=== PATIENT | female | born 1960 | race Caucasian/White ===

== ENCOUNTER 2022-01-18 04:39 | Emergency (ER) | payer OTHER, SELFPAY ==
[2022-01-18 04:48] VITALS: BMI 36.0
[2022-01-18 04:54] VITALS: BP 112/41; PULSE 93; RESP 16; TEMP 36.6; O2SAT 97
[2022-01-18 05:14] LABS: COVID-19 Test Negative (Negative)
[2022-01-18 05:54] VITALS: BP 123/50; PULSE 86; RESP 16; TEMP 36.7; O2SAT 96
--- NOTE | 2022-01-18 05:57 | PC.NURSE ---
Pt transferred from the pod to room 17 due to complex medical history and plan for medical clearance. Pt calm/cooperative, denies SI/HI. Psych consult placed.
--- NOTE | 2022-01-18 06:38 | ED.PSYCH ---
HPI - Psych General Chief Complaint: Psychiatric Symptoms Stated Complaint: crisis Time Seen by Provider: 01/18/22 06:38 Source: patient and old records reviewed Mode of arrival: EMS Limitations: no limitations History of Present Illness HPI Narrative: 61 yo female hx of bipolar on lithium, ESRD on HD [facility], c diff colitis has colostomy in place, HTN, HLD, here with c/o insomnia sent from [facility] she is alert and oriented x 3. She is asking for a sleeping aid at this time. No other complaints just wants to sleep. She has no SI/HI. She is hungry she does not appear manic. complaint: anxiety Onset (ago): day(s) (2) Duration: constant History of same: Yes Relieving factors: medication Exacerbating factors: none Context: significant life stressor Associated psychiatric symptoms: racing thoughts Associated symptoms: denies other symptoms Treatments prior to arrival: none Related Data Home Medications Medication Instructions Recorded Confirmed amiodarone 200 mg tablet 1 tab PO DAILY 01/18/22 01/18/22 aspirin 81 mg tablet,delayed 1 tab PO DAILY 01/18/22 01/18/22 release calcitriol 0.25 mcg capsule 0.25 mcg PO QTUTHSA 01/18/22 01/18/22 docusate sodium 100 mg capsule 2 cap PO BID 01/18/22 01/18/22 (DOK) famotidine 20 mg tablet 1 tab PO DAILY 01/18/22 01/18/22 lamotrigine 25 mg tablet 2 tab PO DAILY 01/18/22 01/18/22 lithium carbonate 600 mg capsule 1 cap PO QTUTHSA 01/18/22 01/18/22 metoprolol tartrate 25 mg tablet 12.5 mg PO BID 01/18/22 01/18/22 midodrine 5 mg tablet 1 tab PO TID 01/18/22 01/18/22 multivitamin with folic acid 400 1 tab PO DAILY 01/18/22 01/18/22 mcg tablet (Tab-A-Leela) olanzapine 15 mg tablet 1 tab PO BEDTIME 01/18/22 01/18/22 polyethylene glycol 3350 17 17 g PO DAILY 01/18/22 01/18/22 gram/dose oral powder sertraline 100 mg tablet 1 tab PO DAILY 01/18/22 01/18/22 sevelamer HCl 800 mg tablet 3 tab PO TID 01/18/22 01/18/22 thiamine HCl (vitamin B1) 100 mg 1 tab PO DAILY 01/18/22 01/18/22 tablet Previous Rx's Medication Instructions Recorded lorazepam 0.5 mg tablet (Ativan) 0.5 mg PO BID PRN anxiety #14 tabs 01/18/22 Allergies Allergy/AdvReac Type Severity Reaction Status Date / Time furosemide [From Lasix] Allergy Unknown UNKNOWN Unverified 03/02/20 16:01 haloperidol [From Haldol] Allergy Unknown UNKNOWN Unverified 03/02/20 16:01 lithium [Hildebran] AdvReac Severe acute Unverified 03/02/20 16:01 renal failure From Haldol Allergy Unknown UNKNOWN Uncoded 03/02/20 16:01 Review of Systems Review of Systems: Constitutional : No Fever, No Chills ENT/Mouth : No Ear Pain, No Nasal Congestion, No sore throat Eyes: No Eye Pain, No Swelling, No Redness Cardiovascular : No Chest Pain, No SOB Respiratory : No Cough, No Sputum, No Dyspnea Gastrointestinal : No Nausea, No Vomiting, No Diarrhea, No Hematochezia, No Melena Genitourinary : No Dysuria, No Urinary Frequency, No Hematuria Musculoskeletal : No Myalgias Skin : No Skin Lesions, No rash Neuro : No Weakness, No Numbness, No Paresthesias, No Dizziness, No Headache Psych : positive Anxiety, no Depression, no SI/HI, pos insomnia Heme/Lymph: No Lymphadenopathy Endocrine : No Polyuria, No Polydipsia All other systems reviewed and are negative [facility] Past Medical History Attestation statement: The following information was validated with the patient. Medical History Bipolar 1 disorder C. difficile colitis ESRD (end stage renal disease) GERD (gastroesophageal reflux disease) HTN (hypertension) Hyperlipidemia Pneumonia Social History Social History Alcohol intake: former Patient Tobacco Use Status: Never used Tobacco Use of substances other than those prescribed or required for medical reasons: No Advance Directives: No Advance Directives Information Provided: Yes Physical Exam Vital Signs: Vital Signs: Last Vital Signs Temp 98.1 F 01/18/22 05:54 Pulse 64 01/18/22 07:19 Resp 16 01/18/22 05:54 BP 115/74 01/18/22 07:19 Pulse Ox 98 01/18/22 07:19 O2 Del Method 01/18/22 07:19 BMI result Body Mass Index 36.0 Appearance: Alert. Oriented X3. No acute distress. Eyes: Pupils equal, round and reactive to light. ENT: Pharynx normal. Neck: Normal inspection. Neck supple. CVS: Normal heart rate and rhythm. Pulses normal. Respiratory: No respiratory distress. Breath sounds normal. Abdomen: Soft and nontender. colostomy present Skin: Skin warm and dry. Normal skin color. Normal skin turgor. Extremities: No lower extremity edema. No calf ttp Neuro: Oriented X 3. No motor deficit. No sensory deficit. 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 Dispo per lab results and CARE team input. Lab Data Result diagrams: 01/18/22 07:22 01/18/22 07:22 Labs: Lab Results 01/18/22 01/18/22 01/18/22 Range/Units 04:56 07:22 07:22 WBC 7.5 (4.8-10.8) X10*3/uL RBC 3.21 L (4.20-5.50) X10*6/uL Hgb 10.4 L (12.0-16.0) g/dl Hct 31.2 L (37.0-47.0) % MCV 97.2 (80.0-98.0) fL MCH 32.4 (27.0-33.0) pg MCHC 33.3 (31.0-35.0) g/dl RDW 13.7 (11.0-16.0) % Plt Count 173 (160-400) X10*3/uL MPV 9.2 L (9.4-12.3) fL Absolute Nucleated RBC 0.000 (0.0-0.012) X10*3/uL Nucleated RBC % (auto) 0.0 (0.0-0.2) /100WBC Sodium 140 (135-145) mmol/L Potassium 4.6 (3.3-5.1) mmol/L Chloride 98 (96-108) mmol/L Carbon Dioxide 25 (22-29) mmol/L Anion Gap 22 H (12-20) BUN 32 H (9-16) mg/dL Creatinine 6.35 H* (0.5-1.4) mg/dL Estim Creat Clear Calc 10.5 Estimated GFR 7 Random Glucose 89 (60-115) mg/dL Calcium 10.5 H (8.4-10.2) mg/dL Total Bilirubin 0.6 (0.0-1.0) mg/dL AST 17 (5-31) U/L ALT 17 (0-31) U/L Alkaline Phosphatase 144 H (39-117) U/L Total Protein 7.2 (6.5-8.0) g/dL Albumin 4.6 (3.5-5.0) g/dL [place]an (0.60-1.20) mmol/L COVID-19 ([place]) Negative (Negative) COVID-19 Clin Com See Note 01/18/22 Range/Units 07:22 WBC (4.8-10.8) X10*3/uL RBC (4.20-5.50) X10*6/uL Hgb (12.0-16.0) g/dl Hct (37.0-47.0) % MCV (80.0-98.0) fL MCH (27.0-33.0) pg MCHC (31.0-35.0) g/dl RDW (11.0-16.0) % Plt Count (160-400) X10*3/uL MPV (9.4-12.3) fL Absolute Nucleated RBC (0.0-0.012) X10*3/uL Nucleated RBC % (auto) (0.0-0.2) /100WBC Sodium (135-145) mmol/L Potassium (3.3-5.1) mmol/L Chloride (96-108) mmol/L Carbon Dioxide (22-29) mmol/L Anion Gap (12-20) BUN (9-16) mg/dL Creatinine (0.5-1.4) mg/dL Estim Creat Clear Calc Estimated GFR Random Glucose (60-115) mg/dL Calcium (8.4-10.2) mg/dL Total Bilirubin (0.0-1.0) mg/dL AST (5-31) U/L ALT (0-31) U/L Alkaline Phosphatase (39-117) U/L Total Protein (6.5-8.0) g/dL Albumin (3.5-5.0) g/dL [place] 0.65 (0.60-1.20) mmol/L COVID-19 ([place]) (Negative) COVID-19 Clin Com Discharge Plan Discharge Clinical Impression: Insomnia Qualifiers: Insomnia type: unspecified Qualified Code(s): G47.00 - Insomnia, unspecified Patient Disposition: Home, Self-Care Instructions: Insomnia (ED) Additional Instructions: return to ED for any worsening symptoms or concerns would start on low dose PRN ativan for anxiety Prescriptions: New lorazepam [Ativan] 0.5 mg tablet 0.5 mg PO BID PRN (Reason: anxiety) Qty: 14 0RF No Action amiodarone 200 mg tablet 1 tab PO DAILY sertraline 100 mg tablet 1 tab PO DAILY olanzapine 15 mg tablet 1 tab PO BEDTIME midodrine 5 mg tablet 1 tab PO TID metoprolol tartrate 25 mg tablet 12.5 mg PO BID lamotrigine 25 mg tablet 2 tab PO DAILY aspirin 81 mg tablet,delayed release (DR/EC) 1 tab PO DAILY docusate sodium [DOK] 100 mg capsule 2 cap PO BID polyethylene glycol 3350 17 gram/dose powder 17 g PO DAILY thiamine HCl (vitamin B1) 100 mg tablet 1 tab PO DAILY lithium carbonate 600 mg capsule 1 cap PO QTUTHSA Label Comments: Every Friday, , and Friday after dialysis multivitamin with folic acid [Tab-A-Leela] 400 mcg tablet 1 tab PO DAILY sevelamer HCl 800 mg tablet 3 tab PO TID Label Comments: with meals famotidine 20 mg tablet 1 tab PO DAILY calcitriol 0.25 mcg Capsule 0.25 mcg PO QTUTHSA Rx Instructions: administer after dialysis on dialysis days
--- NOTE | 2022-01-18 06:47 | PC.NURSE ---
Pt refusing labs at this time
[2022-01-18] MEDS: LORazepam 1 MG TABLET PO (07:14)
[2022-01-18 07:19] VITALS: BP 115/74; PULSE 64; O2SAT 98
[2022-01-18 07:30] LABS: Hematocrit 31.2 % (37.0-47.0); Hemoglobin 10.4 g/dl (12.0-16.0); Mean Corpuscular HGB Conc 33.3 g/dl (31.0-35.0); Mean Corpuscular Hemoglobin 32.4 pg (27.0-33.0); Mean Corpuscular Volume 97.2 fL (80.0-98.0); Mean Platelet Volume 9.2 fL (9.4-12.3); Platelet Count 173 X10*3/uL (160-400); Red Blood Count 3.21 X10*6/uL (4.20-5.50); Red Cell Distribution Width 13.7 % (11.0-16.0); White Blood Count 7.5 X10*3/uL (4.8-10.8)
[2022-01-18 07:37] LABS: Lithium 0.65 mmol/L (0.60-1.20)
[2022-01-18 07:50] LABS: Alanine Aminotransferase 17 U/L (0-31); Albumin Level 4.6 g/dL (3.5-5.0); Alkaline Phosphatase 144 U/L (39-117); Anion Gap 22 (12-20); Aspartate Amino Transferase 17 U/L (5-31); Bilirubin Total 0.6 mg/dL (0.0-1.0); Blood Urea Nitrogen 32 mg/dL (9-16); Calcium 10.5 mg/dL (8.4-10.2); Carbon Dioxide 25 mmol/L (22-29); Chloride 98 mmol/L (96-108); Creatinine Clr Calc Pharmacy 10.5; Estimated Glomerular Filt Rate 7; Glucose Random 89 mg/dL (60-115); Potassium 4.6 mmol/L (3.3-5.1); Sodium 140 mmol/L (135-145); Total Protein 7.2 g/dL (6.5-8.0)
[2022-01-18 11:22] VITALS: BP 124/59; PULSE 87; RESP 17; TEMP 36.7; O2SAT 95
--- NOTE | 2022-01-18 12:05 | PC.NURSE ---
Spoke with [facility] regarding sending patient back home via [facility] transport van. According to staff pt at times is manic and makes sexual accusations periodically. Because of this, the staff did not recommend transport home back via the [facility] van. Primary RN notified and EMS transportation specialist was contacted.
== END 2022-01-18 13:47 | disposition home or self-care (01) ==
PROVIDERS: Emergency Provider Emergency Medicine
DX: G47.00 Insomnia, unspecified (principal); Z20.822 Contact with and (suspected) exposure to COVID-19; Z79.899 Other long term (current) drug therapy
CPT/HCPCS: 36415; 80053; 80178; 85027; 87635; 99284

== ENCOUNTER 2022-11-10 14:45 | Inpatient (IN) | payer OTHER, SELFPAY ==
--- NOTE | ~2022-11-10 | CT_ITS ---
EXAMINATION: CT CHEST WITHOUT CONTRAST CLINICAL INFORMATION: Hypoxia COMPARISON: Chest radiograph earlier today TECHNIQUE: Multidetector volumetric CT imaging of the chest was done. Axial MIP volume rendering provided. Sagittal and coronal reformatted images were obtained. The exam is suboptimal secondary to marked motion artifact This CT examination was performed using dose optimization techniques as appropriate, variously including the following: *Automated exposure control *Adjustment of mA and/or kV according to patient size (this includes techniques or standardized protocols for targeted exams where dose is matched to indication/reason for exam; i.e. extremities or head) *Use of iterative reconstruction technique DLP: 357 mGy-cm FINDINGS: INGREDIENT SPECIALIST: Cardiomegaly and degenerative changes in the spine. LUNGS: Bibasilar atelectasis is present improved since 2010. A few tiny micronodules are seen with a 2 mm nodule in the left lower lobe adjacent to the fissure (5:193) and a right middle lobe 3 mm nodule (5:194).. No suspicious lung masses are seen. MEDIASTINUM: Thyroid is lobular but unremarkable. There is mild cardiac enlargement. No mediastinal or hilar lymphadenopathy is seen. No pericardial effusion. CORONARY ARTERY CALCIFICATION: Present PLEURA:Trace bilateral pleural effusions may be present. AXILLA: No lymphadenopathy. UPPER ABDOMEN: There is cholelithiasis without evidence of cholecystitis. There are bilateral Bosniak class I and Bosniak class II renal cysts present. The kidneys are atrophic. Calcifications present secondary to scarring and nephrolithiasis. No hydronephrosis seen. OSSEOUS STRUCTURES: Degenerative changes are noted throughout the spine CT/CT chest wo IV con IMPRESSION: 1. Cardiomegaly with trace bilateral pleural effusions. 2. A few tiny micronodules are seen. 3. Cholelithiasis without cholecystitis. 4. Bilateral renal cysts, Bosniak class I and II which need no additional follow-up. 5. Bilateral nephrolithiasis and renal scarring. No hydronephrosis. Fleischner guidelines were followed.
--- NOTE | ~2022-11-10 | XR_ITS ---
EXAMINATION: XR CHEST CLINICAL INFORMATION: Shortness of breath COMPARISON: Chest radiograph 10/21/2009, CT chest 10/16/2009. TECHNIQUE: Frontal view of the chest was obtained. FINDINGS: Low lung lines are present with the fifth anterior rib segments terminating projection with the lung bases. Normal appearance of the cardiomediastinal structures. Mild left base scattered airspace type opacities are noted. No pneumothoraces or definitive pleural effusions visualized. XR/XR chest 1V IMPRESSION: *Low lung volumes. *Mild left base airspace opacity which may represent mild atelectasis in the setting of low lung volumes. Mild focal consolidation could have a similar appearance.
--- NOTE | ~2022-11-10 | CT_ITS ---
EXAMINATION: CT HEAD WITHOUT CONTRAST CLINICAL INFORMATION: Change in mental status. Change in mental status. COMPARISON: CT head from 10/04/2009. TECHNIQUE: Contiguous axial imaging was performed from the skull base to vertex without intravenous administration of contrast. This CT examination was performed using dose optimization techniques as appropriate, variously including the following: *Automated exposure control. *Adjustment of mA and/or kV according to patient size (this includes techniques or standardized protocols for targeted exams where dose is matched to indication/reason for exam; i.e. extremities or head). *Use of iterative reconstruction technique. DLP: 835 mGy-cm FINDINGS: There is no evidence of acute intracranial hemorrhage or edematous territorial infarction. Cor[place]-white matter differentiation is preserved. There is no abnormal attenuation within the brain parenchyma. The ventricles are normal in morphology and size. No evidence for obstructive hydrocephalus. No abnormal mass effect or midline shift. No extra-axial fluid collections. Calcific atherosclerotic disease of the intracranial internal carotid arteries. No hyperdense vessel sign. No acute soft tissue or osseous abnormalities. Mild mucosal thickening of the paranasal sinuses. The mastoid air cells and middle ear cavities are clear. Mild to moderate degenerative arthropathy of the temporomandibular joints. Multifocal odontogenic enamel erosions. CT/CT head/brain wo IV con IMPRESSION: 1. No evidence of acute intracranial hemorrhage or edematous territorial infarction. 2. Mild underlying microangiopathy and generalized cerebral volume loss.
[2022-11-10 14:55] VITALS: BP 113/41; BP 131/76; PULSE 83; PULSE 90; RESP 20; TEMP 36.8; O2SAT 87; O2SAT 91; BMI 33.8
--- NOTE | 2022-11-10 15:34 | ECG_ITS ---
Test Reason : SOB Blood Pressure : / mmHG Vent. Rate : 079 BPM Atrial Rate : 079 BPM P-R Int : 214 ms QRS Dur : 130 ms QT Int : 416 ms P-R-T Axes : 041 -26 041 degrees QTc Int : 477 ms Sinus rhythm with 1st degree A-V block Left ventricular hypertrophy with QRS widening ( R in aVL , [place] product ) Abnormal ECG When compared with ECG of 18-OCT-2009 10:42, Premature ventricular complexes are no longer Present FL interval has increased QRS duration has increased QT has lengthened Referred By: David Traore Electronically Signed By:FRANCOISE CONDON MD
[2022-11-10 15:35] VITALS: O2SAT 83
--- NOTE | 2022-11-10 16:15 | ED.GENADULT ---
HPI - General Adult General Chief complaint: Dyspnea Stated complaint: Low O2 sat at facility per EMS Time Seen by Provider: 11/10/22 16:09 Source: patient and EMS Mode of arrival: EMS Limitations: no limitations History of Present Illness HPI narrative: 62-year-old female history revealed on lithium, ESRD on HD had dialysis yesterday, history of C diff colitis as a colostomy please, HTN, HLD, patient of at the detention today when out with her family who noticed that patient suddenly became lethargic, patient is known to COPD/asthma declined any shortness of breath no headache, no blurry vision, photophobia, no neck stiffness no CP, no SOB, no doctor, no nausea, vomiting, no diarrhea. Patient is not using supplemental oxygen home. Related Data Home Medications Medication Instructions Recorded Confirmed amiodarone 200 mg tablet 1 tab PO DAILY 01/18/22 01/18/22 aspirin 81 mg tablet,delayed 1 tab PO DAILY 01/18/22 01/18/22 release calcitriol 0.25 mcg capsule 0.25 mcg PO QTUTHSA 01/18/22 01/18/22 docusate sodium 100 mg capsule 2 cap PO BID 01/18/22 01/18/22 (DOK) famotidine 20 mg tablet 1 tab PO DAILY 01/18/22 01/18/22 lamotrigine 25 mg tablet 2 tab PO DAILY 01/18/22 01/18/22 lithium carbonate 600 mg capsule 1 cap PO QTUTHSA 01/18/22 01/18/22 metoprolol tartrate 25 mg tablet 12.5 mg PO BID 01/18/22 01/18/22 midodrine 5 mg tablet 1 tab PO TID 01/18/22 01/18/22 multivitamin with folic acid 400 1 tab PO DAILY 01/18/22 01/18/22 mcg tablet (Tab-A-Leela) olanzapine 15 mg tablet 1 tab PO BEDTIME 01/18/22 01/18/22 polyethylene glycol 3350 17 17 g PO DAILY 01/18/22 01/18/22 gram/dose oral powder sertraline 100 mg tablet 1 tab PO DAILY 01/18/22 01/18/22 sevelamer HCl 800 mg tablet 3 tab PO TID 01/18/22 01/18/22 thiamine HCl (vitamin B1) 100 mg 1 tab PO DAILY 01/18/22 01/18/22 tablet Previous Rx's Medication Instructions Recorded lorazepam 0.5 mg tablet (Ativan) 0.5 mg PO BID PRN anxiety #14 tabs 01/18/22 Allergies Allergy/AdvReac Type Severity Reaction Status Date / Time furosemide [From Lasix] Allergy Unknown UNKNOWN Unverified 03/02/20 16:01 haloperidol [From Haldol] Allergy Unknown UNKNOWN Unverified 03/02/20 16:01 lithium [[place]] AdvReac Severe acute Unverified 03/02/20 16:01 renal failure From Haldol Allergy Unknown UNKNOWN Uncoded 03/02/20 16:01 Review of Systems Review of Systems: All other systems are reviewed and are negative Constitutional: Reports as per HPI and Reports no additional constitutional complaints Eyes: Reports as per HPI and Reports no additional eye complaints Reports system reviewed and no additional complaints, except as documented Cardiovascular: Reports as per HPI and Reports no additional cardiovascular complaints Respiratory: Reports as per HPI and Reports no additional respiratory complaints Gastrointestinal: Reports as per HPI and Reports no additional gastrointestinal complaints Genitourinary: Reports no additional female genitourinary complaints Musculoskeletal: Reports no additional musculoskeletal complaints Skin/Breast: Reports system reviewed and no additional complaints, except as docu Psychiatric: Reports no additional psychiatric complaints Endocrine: Reports no additional endocrine complaints Hematologic/Lymphatic: Reports no additional hematologic/lymphatic complaints Allergic/Immunologic: Reports no additional allergic/immunologic complaints Reports system reviewed and no additional complaints, except as documented and Reports Abnormal speech present [facility] Past Medical History Medical History Bipolar 1 disorder C. difficile colitis ESRD (end stage renal disease) GERD (gastroesophageal reflux disease) HTN (hypertension) Hyperlipidemia Pneumonia Social History Social History Alcohol intake: former Patient Tobacco Use Status: Never used Tobacco Smoked in Last 30 Days: No Use of substances other than those prescribed or required for medical reasons: No Advance Directives: Yes Advance Directives on File: Yes Advance Directives Date on File: 01/21/22 Physical Exam ED Vital Signs: Vital Signs - 24 hr 11/10/22 14:55 11/10/22 15:35 11/10/22 16:51 Temperature 98.3 F 97.2 F Pulse Rate 83 79 Respiratory Rate 20 19 Blood Pressure 113/41 L 98/58 L Pulse Oximetry 87 L 83 L 95 Oxygen Delivery Method Nasal Cannula Nasal Cannula Oxygen Flow Rate 2 2 11/10/22 18:16 Temperature Pulse Rate 79 Respiratory Rate 14 Blood Pressure 109/51 L Pulse Oximetry 95 Oxygen Delivery Method Nasal Cannula Oxygen Flow Rate 2 BMI result Body Mass Index 33.8 Vital signs have been reviewed as appeared to be correct. Blood pressure normal. Heart rate normal. Respiration rate normal. Temperature normal. Oxygen saturation normal. Appearance: Alert. Oriented X3. No acute distress. Head: Normal external exam. Normocephalic. Atraumatic. No Treviño signs noted. No raccoon eyes noted Eyes: PERRLA. EOMI. Conjunctiva and sclera normal. Eyelids normal. ENT: TM's Normal. Pharynx normal. Uvula midline. Moist mucous membranes. No trismus noted. No drooling noted. No muffled voice noted. Neck: Normal inspection. Neck supple. FROM. No adenopathy. Thyroid Normal. No meningeal signs. No neck mass noted. CVS: Normal heart rate and rhythm. Heart sound normal. No murmurs noted. Pulses normal throughout. Respiratory: No respiratory distress. Painless inspiration. Breath sounds normal. No wheezes/rales/rhonchi noted. Chest nontender. No accessory muscle usage noted or decreased air movement noted. Abdomen: Soft and nontender. Bowel sounds normal in all 4 quadrants. No distention noted. No organomegaly noted. No visible injury noted. Back: No CVA tenderness. Full range of motion noted. Skin: Skin warm and dry. Normal skin color. Normal skin turgor. No rashes/lesions/lacerations noted. Extremities: No lower extremity edema. Extremities exhibit normal range of motion. Extremities nontender. Neuro: Oriented X 3. Cranial nerve exam: II-XII are grossly intact No motor deficit. No sensory deficit. Reflexes normal. Course Course Course Narrative: A 62-year-old female came in for evaluation of lethargy and hypoxia, patient had recent similar presentation to [facility] this week, patient is at risk for pulmonary embolism because chronic renal failure unable to obtain CT angio with IV contrast, patient however received 1 dose of Lovenox and will get admitted for V/Q scan as an inpatient. Patient will be monitored for lethargic and hypoxia. Hypoxia is improved with 2 L of nasal cannula. Medications Administered Discontinued Medications Generic Name Dose Route Start Last Admin Trade Name [place] PRN Reason Stop Dose Admin Dextrose 25 gm 11/10/22 17:30 11/10/22 17:26 Dextrose 50 % 25 Gm/50 Ml Syringe IVPUSH 11/10/22 17:31 25 gm ONCE ONE Administration Enoxaparin Sodium 100 mg 11/10/22 20:32 11/10/22 20:40 Enoxaparin Sodium 100 Mg/Ml Syringe 1 mg/kg (100 mg) 11/10/22 20:33 100 mg SUBCUT Administration ONCE ONE Medical Decision Making Differential Diagnosis Differential Diagnoses: The differential diagnosis associated with the presentation includes (Pulmonary embolism, pneumonia, COPD exacerbation, electrolyte abnormalities, severe anemia, substance abuse.) Admission/Observation Consideration of admission/observation: Escalation of care including admission/observation considered Consult Healthcare Provider Management of the patient was discussed with: Hospitalist (Dr. antonio) Lab Data MDM Lab Attestation statement: I reviewed the patient's lab results. 11/10/22 20:39 11/10/22 16:21 Labs: Lab Results 11/10/22 11/10/22 11/10/22 Range/Units 15:49 16:20 16:21 WBC 10.7 (4.8-10.8) X10*3/uL RBC 2.51 L D (4.20-5.50) X10*6/uL Hgb 8.1 L D (12.0-16.0) g/dl Hct 27.2 L (37.0-47.0) % MCV 108.4 H (80.0-98.0) fL MCH 32.3 (27.0-33.0) pg MCHC 29.8 L (31.0-35.0) g/dl RDW 16.0 (11.0-16.0) % Plt Count 262 D (160-400) X10*3/uL MPV 8.6 L (9.4-12.3) fL Immature Gran % (Auto) 1.1 H (0.0-0.4) % Neut % (Auto) 77.3 H (45-73) % Lymph % (Auto) 10.3 L (20-40) % [place] % (Auto) 8.7 (2-11) % Eos % (Auto) 2.1 (0-4) % Baso % (Auto) 0.5 (0-2) % Lymph # (Auto) 1.1 L (1.2-4.9) X10*3/uL [place] # (Auto) 0.9 (0.1-1.2) X10*3/uL Eos # (Auto) 0.2 (0.0-0.4) X10*3/uL Baso # (Auto) 0.1 (0.0-0.2) X10*3/uL Abs Immat Gran (auto) 0.12 H (0.00-0.03) X10*3/uL Absolute Neuts (auto) 8.3 (2.0-8.3) x10*3/uL Absolute Nucleated RBC 0.000 (0.0-0.012) X10*3/uL Nucleated RBC % (auto) 0.0 (0.0-0.2) /100WBC PT (10.0-13.1) SEC INR (0.9-1.1) APTT (26.0-36.4) SEC D-Dimer High Sensitivty NG/ML VBG pH (7.32-7.43) VBG pCO2 mmHg VBG pO2 mmHg VBG HCO3 (22-26) mmol/L VBG O2 Saturation % VBG Base Excess mmol/L Sodium (135-145) mmol/L Potassium (3.3-5.1) mmol/L Chloride (96-108) mmol/L Carbon Dioxide (22-29) mmol/L Anion Gap (12-20) BUN (9-16) mg/dL Creatinine (0.5-1.4) mg/dL Estim Creat Clear Calc Estimated GFR POC Glucose (60-115) mg/dL Random Glucose (60-115) mg/dL Calcium (8.4-10.2) mg/dL Total Bilirubin (0.0-1.0) mg/dL AST (5-31) U/L ALT (0-31) U/L Alkaline Phosphatase (39-117) U/L Ammonia (13-55) umol/L Troponin I High Sens (<3.5-17.0) ng/L B-Natriuretic Peptide (<100) pg/mL Total Protein (6.5-8.0) g/dL Albumin (3.5-5.0) g/dL [place] 0.61 (0.60-1.20) mmol/L COVID-19 ([place]) Negative (Negative) COVID-19 Clin Com See Note 11/10/22 11/10/22 11/10/22 Range/Units 16:21 16:21 16:21 WBC (4.8-10.8) X10*3/uL RBC (4.20-5.50) X10*6/uL Hgb (12.0-16.0) g/dl Hct (37.0-47.0) % MCV (80.0-98.0) fL MCH (27.0-33.0) pg MCHC (31.0-35.0) g/dl RDW (11.0-16.0) % Plt Count (160-400) X10*3/uL MPV (9.4-12.3) fL Immature Gran % (Auto) (0.0-0.4) % Neut % (Auto) (45-73) % Lymph % (Auto) (20-40) % Mcdowell % (Auto) (2-11) % Eos % (Auto) (0-4) % Baso % (Auto) (0-2) % Lymph # (Auto) (1.2-4.9) X10*3/uL [place] # (Auto) (0.1-1.2) X10*3/uL Eos # (Auto) (0.0-0.4) X10*3/uL Baso # (Auto) (0.0-0.2) X10*3/uL Abs Immat Gran (auto) (0.00-0.03) X10*3/uL Absolute Neuts (auto) (2.0-8.3) x10*3/uL Absolute Nucleated RBC (0.0-0.012) X10*3/uL Nucleated RBC % (auto) (0.0-0.2) /100WBC PT 10.1 (10.0-13.1) SEC INR 0.9 (0.9-1.1) APTT (26.0-36.4) SEC D-Dimer High Sensitivty 238 NG/ML VBG pH (7.32-7.43) VBG pCO2 mmHg VBG pO2 mmHg VBG HCO3 (22-26) mmol/L VBG O2 Saturation % VBG Base Excess mmol/L Sodium 145 (135-145) mmol/L Potassium 4.0 (3.3-5.1) mmol/L Chloride 99 (96-108) mmol/L Carbon Dioxide 31 H (22-29) mmol/L Anion Gap 19 (12-20) BUN 29 H (9-16) mg/dL Creatinine 6.37 H* (0.5-1.4) mg/dL Estim Creat Clear Calc 11.5 Estimated GFR 7 POC Glucose (60-115) mg/dL Random Glucose 49 L* (60-115) mg/dL Calcium 10.2 (8.4-10.2) mg/dL Total Bilirubin 0.5 (0.0-1.0) mg/dL AST 14 (5-31) U/L ALT 13 (0-31) U/L Alkaline Phosphatase 119 H (39-117) U/L Ammonia (13-55) umol/L Troponin I High Sens 10.5 (<3.5-17.0) ng/L B-Natriuretic Peptide (<100) pg/mL Total Protein 6.7 (6.5-8.0) g/dL Albumin 4.1 (3.5-5.0) g/dL [place] (0.60-1.20) mmol/L COVID-19 ([place]) (Negative) COVID-19 Clin Com 11/10/22 11/10/22 11/10/22 Range/Units 16:21 16:21 16:21 WBC (4.8-10.8) X10*3/uL RBC (4.20-5.50) X10*6/uL Hgb (12.0-16.0) g/dl Hct (37.0-47.0) % MCV (80.0-98.0) fL MCH (27.0-33.0) pg MCHC (31.0-35.0) g/dl RDW (11.0-16.0) % Plt Count (160-400) X10*3/uL MPV (9.4-12.3) fL Immature Gran % (Auto) (0.0-0.4) % Neut % (Auto) (45-73) % Lymph % (Auto) (20-40) % [place]cd[place] % (Auto) (2-11) % Eos % (Auto) (0-4) % Baso % (Auto) (0-2) % Lymph # (Auto) (1.2-4.9) X10*3/uL [place] # (Auto) (0.1-1.2) X10*3/uL Eos # (Auto) (0.0-0.4) X10*3/uL Baso # (Auto) (0.0-0.2) X10*3/uL Abs Immat Gran (auto) (0.00-0.03) X10*3/uL Absolute Neuts (auto) (2.0-8.3) x10*3/uL Absolute Nucleated RBC (0.0-0.012) X10*3/uL Nucleated RBC % (auto) (0.0-0.2) /100WBC PT (10.0-13.1) SEC INR (0.9-1.1) APTT (26.0-36.4) SEC D-Dimer High Sensitivty Cancelled NG/ML VBG pH (7.32-7.43) VBG pCO2 mmHg VBG pO2 mmHg VBG HCO3 (22-26) mmol/L VBG O2 Saturation % VBG Base Excess mmol/L Sodium (135-145) mmol/L Potassium (3.3-5.1) mmol/L Chloride (96-108) mmol/L Carbon Dioxide (22-29) mmol/L Anion Gap (12-20) BUN (9-16) mg/dL Creatinine (0.5-1.4) mg/dL Estim Creat Clear Calc Estimated GFR POC Glucose (60-115) mg/dL Random Glucose (60-115) mg/dL Calcium (8.4-10.2) mg/dL Total Bilirubin (0.0-1.0) mg/dL AST (5-31) U/L ALT (0-31) U/L Alkaline Phosphatase (39-117) U/L Ammonia 20 (13-55) umol/L Troponin I High Sens (<3.5-17.0) ng/L B-Natriuretic Peptide 45 (<100) pg/mL Total Protein (6.5-8.0) g/dL Albumin (3.5-5.0) g/dL [place] (0.60-1.20) mmol/L COVID-19 ([place]) (Negative) COVID-19 Clin Com 11/10/22 11/10/22 11/10/22 Range/Units 16:42 17:55 20:39 WBC 10.0 (4.8-10.8) X10*3/uL RBC 2.28 L (4.20-5.50) X10*6/uL Hgb 7.3 L (12.0-16.0) g/dl Hct 24.3 L (37.0-47.0) % MCV 106.6 H (80.0-98.0) fL MCH 32.0 (27.0-33.0) pg MCHC 30.0 L (31.0-35.0) g/dl RDW 16.2 H (11.0-16.0) % Plt Count 231 (160-400) X10*3/uL MPV 8.6 L (9.4-12.3) fL Immature Gran % (Auto) (0.0-0.4) % Neut % (Auto) (45-73) % Lymph % (Auto) (20-40) % [place] % (Auto) (2-11) % Eos % (Auto) (0-4) % Baso % (Auto) (0-2) % Lymph # (Auto) (1.2-4.9) X10*3/uL [place] # (Auto) (0.1-1.2) X10*3/uL Eos # (Auto) (0.0-0.4) X10*3/uL Baso # (Auto) (0.0-0.2) X10*3/uL Abs Immat Gran (auto) (0.00-0.03) X10*3/uL Absolute Neuts (auto) (2.0-8.3) x10*3/uL Absolute Nucleated RBC 0.000 (0.0-0.012) X10*3/uL Nucleated RBC % (auto) 0.0 (0.0-0.2) /100WBC PT (10.0-13.1) SEC INR (0.9-1.1) APTT (26.0-36.4) SEC D-Dimer High Sensitivty NG/ML VBG pH 7.45 H (7.32-7.43) VBG pCO2 55 mmHg VBG pO2 38 mmHg VBG HCO3 38 H (22-26) mmol/L VBG O2 Saturation 57.0 % VBG Base Excess 13.2 mmol/L Sodium (135-145) mmol/L Potassium (3.3-5.1) mmol/L Chloride (96-108) mmol/L Carbon Dioxide (22-29) mmol/L Anion Gap (12-20) BUN (9-16) mg/dL Creatinine (0.5-1.4) mg/dL Estim Creat Clear Calc Estimated GFR POC Glucose 171 H (60-115) mg/dL Random Glucose (60-115) mg/dL Calcium (8.4-10.2) mg/dL Total Bilirubin (0.0-1.0) mg/dL AST (5-31) U/L ALT (0-31) U/L Alkaline Phosphatase (39-117) U/L Ammonia (13-55) umol/L Troponin I High Sens (<3.5-17.0) ng/L B-Natriuretic Peptide (<100) pg/mL Total Protein (6.5-8.0) g/dL Albumin (3.5-5.0) g/dL [place] (0.60-1.20) mmol/L COVID-19 ([place]) (Negative) COVID-19 Clin Com 11/10/22 Range/Units 20:39 WBC (4.8-10.8) X10*3/uL RBC (4.20-5.50) X10*6/uL Hgb (12.0-16.0) g/dl Hct (37.0-47.0) % MCV (80.0-98.0) fL MCH (27.0-33.0) pg MCHC (31.0-35.0) g/dl RDW (11.0-16.0) % Plt Count (160-400) X10*3/uL MPV (9.4-12.3) fL Immature Gran % (Auto) (0.0-0.4) % Neut % (Auto) (45-73) % Lymph % (Auto) (20-40) % [place] % (Auto) (2-11) % Eos % (Auto) (0-4) % Baso % (Auto) (0-2) % Lymph # (Auto) (1.2-4.9) X10*3/uL [place] # (Auto) (0.1-1.2) X10*3/uL Eos # (Auto) (0.0-0.4) X10*3/uL Baso # (Auto) (0.0-0.2) X10*3/uL Abs Immat Gran (auto) (0.00-0.03) X10*3/uL Absolute Neuts (auto) (2.0-8.3) x10*3/uL Absolute Nucleated RBC (0.0-0.012) X10*3/uL Nucleated RBC % (auto) (0.0-0.2) /100WBC PT 10.2 (10.0-13.1) SEC INR 0.9 (0.9-1.1) APTT 29.6 (26.0-36.4) SEC D-Dimer High Sensitivty NG/ML VBG pH (7.32-7.43) VBG pCO2 mmHg VBG pO2 mmHg VBG HCO3 (22-26) mmol/L VBG O2 Saturation % VBG Base Excess mmol/L Sodium (135-145) mmol/L Potassium (3.3-5.1) mmol/L Chloride (96-108) mmol/L Carbon Dioxide (22-29) mmol/L Anion Gap (12-20) BUN (9-16) mg/dL Creatinine (0.5-1.4) mg/dL Estim Creat Clear Calc Estimated GFR POC Glucose (60-115) mg/dL Random Glucose (60-115) mg/dL Calcium (8.4-10.2) mg/dL Total Bilirubin (0.0-1.0) mg/dL AST (5-31) U/L ALT (0-31) U/L Alkaline Phosphatase (39-117) U/L Ammonia (13-55) umol/L Troponin I High Sens (<3.5-17.0) ng/L B-Natriuretic Peptide (<100) pg/mL Total Protein (6.5-8.0) g/dL Albumin (3.5-5.0) g/dL [place] (0.60-1.20) mmol/L COVID-19 ([place]) (Negative) COVID-19 Clin Com Independent Interpretation I performed an independent interpretation of an: Plain X-Ray (Chest:? Left low lung opacity.) and CT Scan (Chest/head CT: No acute intracranial/intrathoracic pathology.) Radiology Impression Discussion of test interpretation with radiology: I have reviewed the radiologist's reading. Discharge Plan Discharge Clinical Impression: Lethargic, COPD with hypoxia Patient Disposition: Admitted As Inpatient
[2022-11-10 16:21] LABS: COVID-19 Test Negative (Negative); IDNOW Serial# 08D9AD1C
[2022-11-10 16:46] LABS: MANUAL DIFF FLAG NO
[2022-11-10 16:48] LABS: Basophils Absolute Auto 0.1 X10*3/uL (0.0-0.2); Basophils Percent Auto 0.5 % (0-2); Eosinophils Absolute Auto 0.2 X10*3/uL (0.0-0.4); Eosinophils Percent Auto 2.1 % (0-4); Hematocrit 27.2 % (37.0-47.0); Hemoglobin 8.1 g/dl (12.0-16.0); Imm Gran Abs Auto 0.12 X10*3/uL (0.00-0.03); Imm Gran Pct Auto 1.1 % (0.0-0.4); Lymphocytes Absolute Auto 1.1 X10*3/uL (1.2-4.9); Lymphocytes Percent Auto 10.3 % (20-40); Mean Corpuscular HGB Conc 29.8 g/dl (31.0-35.0); Mean Corpuscular Hemoglobin 32.3 pg (27.0-33.0); Mean Corpuscular Volume 108.4 fL (80.0-98.0); Mean Platelet Volume 8.6 fL (9.4-12.3); Monocytes Absolute Auto 0.9 X10*3/uL (0.1-1.2); Monocytes Percent Auto 8.7 % (2-11); Neutrophils Absolute Auto 8.3 x10*3/uL (2.0-8.3); Neutrophils Percent Auto 77.3 % (45-73); Platelet Count 262 X10*3/uL (160-400); Red Blood Count 2.51 X10*6/uL (4.20-5.50); White Blood Count 10.7 X10*3/uL (4.8-10.8)
[2022-11-10 16:49] LABS: Venous Blood Gas Refer to POC result
[2022-11-10 16:50] LABS: VBG Base Excess 13.2 mmol/L; VBG HCO3 38 mmol/L (22-26); VBG pCO2 55 mmHg; VBG pH 7.45 (7.32-7.43); VBG pO2 38 mmHg
[2022-11-10 16:51] VITALS: BP 98/58; PULSE 79; RESP 19; TEMP 36.2; O2SAT 95
[2022-11-10 16:54] LABS: INTERNATIONAL NORM RATIO 0.9 (0.9-1.1); Prothrombin Time 10.1 SEC (10.0-13.1)
[2022-11-10 16:56] LABS: Ammonia 20 umol/L (13-55); D Dimer High Sensitivity 238 NG/ML
[2022-11-10 16:57] LABS: Lithium 0.61 mmol/L (0.60-1.20)
[2022-11-10 17:09] LABS: B Type Natriuretic Peptide 45 pg/mL (<100)
[2022-11-10 17:11] LABS: Alanine Aminotransferase 13 U/L (0-31); Albumin Level 4.1 g/dL (3.5-5.0); Alkaline Phosphatase 119 U/L (39-117); Anion Gap 19 (12-20); Aspartate Amino Transferase 14 U/L (5-31); Bilirubin Total 0.5 mg/dL (0.0-1.0); Blood Urea Nitrogen 29 mg/dL (9-16); Calcium 10.2 mg/dL (8.4-10.2); Carbon Dioxide 31 mmol/L (22-29); Chloride 99 mmol/L (96-108); Creatinine Clr Calc Pharmacy 11.5; Estimated Glomerular Filt Rate 7; Glucose Random 49 mg/dL (60-115); Sodium 145 mmol/L (135-145); Total Protein 6.7 g/dL (6.5-8.0)
[2022-11-10 17:14] LABS: Troponin-I High Sensitivity 10.5 ng/L (<3.5-17.0)
[2022-11-10] MEDS: Dextrose 50 % 25 GM/50 ML SYRINGE IVPUSH (17:26)
[2022-11-10 18:00] LABS: Glucose, Whole Blood 171 mg/dL (60-115)
[2022-11-10 18:16] VITALS: BP 109/51; PULSE 79; RESP 14; O2SAT 95
--- NOTE | 2022-11-10 18:31 | MHC.EDTECH ---
pt tells t/w that she does not normally produce urine d/t dialysis. urine sample unable to be obtained. md collazo aware.
--- NOTE | 2022-11-10 19:39 | PC.NURSE ---
I assumed care of the pt at 1900. Pt is asleep in bed at this time. 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
[2022-11-10] MEDS: Enoxaparin Sodium 100 MG/ML SYRINGE SUBCUT (20:40)
[2022-11-10 20:43] LABS: Hematocrit 24.3 % (37.0-47.0); Hemoglobin 7.3 g/dl (12.0-16.0); Mean Corpuscular Volume 106.6 fL (80.0-98.0); Mean Platelet Volume 8.6 fL (9.4-12.3); Platelet Count 231 X10*3/uL (160-400); Red Blood Count 2.28 X10*6/uL (4.20-5.50); Red Cell Distribution Width 16.2 % (11.0-16.0)
[2022-11-10 20:49] LABS: INTERNATIONAL NORM RATIO 0.9 (0.9-1.1); Prothrombin Time 10.2 SEC (10.0-13.1)
[2022-11-10 20:51] LABS: Partial Thromboplastin Time 29.6 SEC (26.0-36.4)
--- NOTE | 2022-11-10 21:17 | PM.IMHP ---
History of Present Illness Date of Service: 11/10/22 Attending physician on admission: Jovanny Sin Chief Complaint: AMS, lethargy 62-year-old female with history of bipolar disordered, hypertension, hyperlipidemia, paroxysmal atrial fibrillation not on anticoagulation, colon cancer s/p resection with end-colostomy, COPD, Oliguric ESRD on dialysis presents to the ED for evaluation of altered mentation and lethargy noted by family shortly after eating lunch. The patient resides in a [place] [facility] and was noted to be days and exhausted appearing by [place] [facility] staff. She was recently hospitalized at [facility] for complications of CKD with lethargy and acute metabolic encephalopathy that did resolve following hemodialysis. Per the patient, she did undergo hemodialysis yesterday. Staff at [place] [facility] report oximetry of 70% rather than baseline 85-90%. She does not use home O2. In the ED, patient desaturates to 83% on room air and was placed on 2 L supplemental O2 via nasal cannula. Vitals otherwise stable. There is no leukocytosis. H/H 7.3/24.3% with MCV 106.6. Creatinine 6.37, BUN 29, electrolytes within normal limits except for CO2 of 31. Initial glucose 49, improved to 171 with 1 amp D50. VBG showed pH 7.45, pCO2 55, PO2 38, bicarb 38. [place] level therapeutic at 0.61. Negative for COVID-19. BNP 45, troponin 10.5. Ammonia level normal at 20. TSH pending. D-dimer 238. Head CT negative for any acute intracranial abnormality but does show underlying microangiopathy and generalized cerebral volume loss. CXR shows low lung volumes and mild left base airspace opacity which may represent mild atelectasis in the setting of low lung volumes. Chest CT shows cardiomegaly with trace bilateral pleural effusions with a few tiny micro nodules. Patient reports taking all of her medications as prescribed. Denies any illicit drug use or alcohol use. Does not smoke cigarettes. Out of concern for pulmonary embolism given hypoxia, she was given empiric dose of therapeutic Lovenox 100 mg in the ED. She has no concerns at this time. Review of Systems Review of Systems: General: No fevers, malaise, unintentional weight loss HEENT: No blurred vision, diplopia. No sore throat, nasal congestion, rhinorrhea, sinus pain, ear pain Cardiovascular: No chest pain, palpitations, or leg edema Respiratory: No shortness of breath, wheezing, cough GI: No abdominal pain, nausea, vomiting, diarrhea, constipation, melena, hematochezia : No dysuria, hematuria, increased urinary frequency, decreased urinary output MSK: No myalgia, back pain Neuro: No headaches, weakness, paresthesias. Skin: No rashes or lesions [facility] Medical History (Updated 11/10/22 @ 21:26 by CLINTON Gonzalez) Anemia of chronic disease Bipolar 1 disorder C. difficile colitis Colon cancer COPD (chronic obstructive pulmonary disease) ESRD (end stage renal disease) GERD (gastroesophageal reflux disease) HTN (hypertension) Hyperlipidemia Pneumonia Surgical History S/P colectomy Social History Alcohol intake: former Patient Tobacco Use Status: Never used Tobacco Smoked in Last 30 Days: No Use of substances other than those prescribed or required for medical reasons: No Advance Directives: Yes Advance Directives on File: Yes Advance Directives Date on File: 01/21/22 Meds Allergies Allergy/AdvReac Type Severity Reaction Status Date / Time furosemide [From Lasix] Allergy Unknown UNKNOWN Unverified 03/02/20 16:01 haloperidol [From Haldol] Allergy Unknown UNKNOWN Unverified 03/02/20 16:01 lithium [[place]] AdvReac Severe acute Unverified 03/02/20 16:01 renal failure From Haldol Allergy Unknown UNKNOWN Uncoded 03/02/20 16:01 Active Medications: Current Medications Acetaminophen (Acetaminophen 325 Mg Tablet) 650 mg PO Q6H PRN PRN Reason: Pain, Mild (Pain Scale 1-3) Docusate Sodium (Docusate Sodium 100 Mg Capsule) 100 mg PO DAILY PRN PRN Reason: Constipation Ondansetron HCl (Ondansetron Hcl 4 Mg/2 Ml Vial) 4 mg IVPUSH Q8H PRN PRN Reason: Nausea and Vomiting Sodium Chloride (0.9 % Sodium Chloride Flush 3 Ml Syringe) 3 ml IVFLUSH [facility] Medications Medication Instructions Recorded Confirmed Last Taken Type amiodarone 200 mg tablet 1 tab PO DAILY 01/18/22 01/18/22 Unknown History aspirin 81 mg tablet,delayed 1 tab PO DAILY 01/18/22 01/18/22 01/17/22 08:00 History release calcitriol 0.25 mcg capsule 0.25 mcg PO QTUTHSA 01/18/22 01/18/22 01/17/22 20:00 History docusate sodium 100 mg capsule 2 cap PO BID 01/18/22 01/18/22 01/17/22 20:00 History (DOK) famotidine 20 mg tablet 1 tab PO DAILY 01/18/22 01/18/22 01/17/22 08:00 History lamotrigine 25 mg tablet 2 tab PO DAILY 01/18/22 01/18/22 01/17/22 08:00 History lithium carbonate 600 mg capsule 1 cap PO QTUTHSA 01/18/22 01/18/22 01/17/22 17:00 History metoprolol tartrate 25 mg tablet 12.5 mg PO BID 01/18/22 01/18/22 01/17/22 20:00 History midodrine 5 mg tablet 1 tab PO TID 01/18/22 01/18/22 01/17/22 20:00 History multivitamin with folic acid 400 1 tab PO DAILY 01/18/22 01/18/22 01/17/22 08:00 History mcg tablet (Tab-A-Leela) olanzapine 15 mg tablet 1 tab PO BEDTIME 01/18/22 01/18/22 01/17/22 08:00 History polyethylene glycol 3350 17 17 g PO DAILY 01/18/22 01/18/22 01/17/22 08:00 History gram/dose oral powder sertraline 100 mg tablet 1 tab PO DAILY 01/18/22 01/18/22 01/17/22 08:00 History sevelamer HCl 800 mg tablet 3 tab PO TID 01/18/22 01/18/22 01/17/22 20:00 History thiamine HCl (vitamin B1) 100 mg 1 tab PO DAILY 01/18/22 01/18/22 01/17/22 08:00 History tablet Physical Exam Vital Signs and Narrative: Vital Signs: Last Vital Signs Temp 97.2 F 11/10/22 16:51 Pulse 79 11/10/22 18:16 Resp 14 11/10/22 18:16 BP 109/51 L 05/28/23 18:16 Pulse Ox 95 11/10/22 18:16 O2 Del Method Nasal Cannula 11/10/22 18:16 O2 Flow Rate 2 11/10/22 18:16 Oxygen Flow Rate 2 11/10/22 14:55 BMI result Body Mass Index 33.8 Constitutional - Awake and Alert, No apparent distress Eyes - PERRLA, EOMI Cardiovascular - S1S2, RRR, No edema Respiratory - Normal lung expansion, Normal respiratory effort, No respiratory distress, CTA bilaterally Gastrointestinal - NT / ND; +BS; No rebound or guarding Extremities - no calf tenderness bilaterally, no swelling Skin - Warm/Dry Neurological - Alert & oriented x3 but confused unable to follow commands during neuro exam Psychological - Appropriate affect Results Labs 11/10/22 20:39 11/10/22 16:21 Labs: Laboratory Results - last 24 hr 11/10/22 11/10/22 11/10/22 15:49 16:20 16:21 MCV 108.4 H MCH 32.3 MCHC 29.8 L RDW 16.0 Plt Count 262 D MPV 8.6 L Immature Gran % (Auto) 1.1 H Neut % (Auto) 77.3 H Lymph % (Auto) 10.3 L [place] % (Auto) 8.7 Eos % (Auto) 2.1 Baso % (Auto) 0.5 Lymph # (Auto) 1.1 L [place] # (Auto) 0.9 Eos # (Auto) 0.2 Baso # (Auto) 0.1 Abs Immat Gran (auto) 0.12 H Absolute Neuts (auto) 8.3 Absolute Nucleated RBC 0.000 Nucleated RBC % (auto) 0.0 PT INR APTT D-Dimer High Sensitivty VBG pH VBG pCO2 VBG pO2 VBG HCO3 VBG O2 Saturation VBG Base Excess Anion Gap Estim Creat Clear Calc Estimated GFR POC Glucose Random Glucose Calcium Total Bilirubin AST ALT Alkaline Phosphatase Ammonia Troponin I High Sens B-Natriuretic Peptide Total Protein Albumin [place] 0.61 COVID-19 ([place]) Negative COVID-19 Clin Com See Note 11/10/22 11/10/22 11/10/22 16:21 16:21 16:21 MCV MCH MCHC RDW Plt Count MPV Immature Gran % (Auto) Neut % (Auto) Lymph % (Auto) [place] % (Auto) Eos % (Auto) Baso % (Auto) Lymph # (Auto) [place] # (Auto) Eos # (Auto) Baso # (Auto) Abs Immat Gran (auto) Absolute Neuts (auto) Absolute Nucleated RBC Nucleated RBC % (auto) PT 10.1 INR 0.9 APTT D-Dimer High Sensitivty 238 VBG pH VBG pCO2 VBG pO2 VBG HCO3 VBG O2 Saturation VBG Base Excess Anion Gap 19 Estim Creat Clear Calc 11.5 Estimated GFR 7 POC Glucose Random Glucose 49 L* Calcium 10.2 Total Bilirubin 0.5 AST 14 ALT 13 Alkaline Phosphatase 119 H Ammonia Troponin I High Sens 10.5 B-Natriuretic Peptide Total Protein 6.7 Albumin 4.1 [place] COVID-19 ([place]) COVIDDeem 11/10/22 11/10/22 11/10/22 16:21 16:21 16:21 MCV MCH MCHC RDW Plt Count MPV Immature Gran % (Auto) Neut % (Auto) Lymph % (Auto) [place] % (Auto) Eos % (Auto) Baso % (Auto) Lymph # (Auto) [place] # (Auto) Eos # (Auto) Baso # (Auto) Abs Immat Gran (auto) Absolute Neuts (auto) Absolute Nucleated RBC Nucleated RBC % (auto) PT INR APTT D-Dimer High Sensitivty Cancelled VBG pH VBG pCO2 VBG pO2 VBG HCO3 VBG O2 Saturation VBG Base Excess Anion Gap Estim Creat Clear Calc Estimated GFR POC Glucose Random Glucose Calcium Total Bilirubin AST ALT Alkaline Phosphatase Ammonia 20 Troponin I High Sens B-Natriuretic Peptide 45 Total Protein Albumin [place] COVID-19 ([place]) COVID-[place] 11/10/22 11/10/22 11/10/22 16:42 17:55 20:39 MCV 106.6 H MCH 32.0 MCHC 30.0 L RDW 16.2 H Plt Count 231 MPV 8.6 L Immature Gran % (Auto) Neut % (Auto) Lymph % (Auto) [place] % (Auto) Eos % (Auto) Baso % (Auto) Lymph # (Auto) [place] # (Auto) Eos # (Auto) Baso # (Auto) Abs Immat Gran (auto) Absolute Neuts (auto) Absolute Nucleated RBC 0.000 Nucleated RBC % (auto) 0.0 PT INR APTT D-Dimer High Sensitivty VBG pH 7.45 H VBG pCO2 55 VBG pO2 38 VBG HCO3 38 H VBG O2 Saturation 57.0 VBG Base Excess 13.2 Anion Gap Estim Creat Clear Calc Estimated GFR POC Glucose 171 H Random Glucose Calcium Total Bilirubin AST ALT Alkaline Phosphatase Ammonia Troponin I High Sens B-Natriuretic Peptide Total Protein Albumin [place] COVID-19 ([place]) COVID-19 Clin Com 11/10/22 20:39 MCV MCH MCHC RDW Plt Count MPV Immature Gran % (Auto) Neut % (Auto) Lymph % (Auto) [place] % (Auto) Eos % (Auto) Baso % (Auto) Lymph # (Auto) [place] # (Auto) Eos # (Auto) Baso # (Auto) Abs Immat Gran (auto) Absolute Neuts (auto) Absolute Nucleated RBC Nucleated RBC % (auto) PT 10.2 INR 0.9 APTT 29.6 D-Dimer High Sensitivty VBG pH VBG pCO2 VBG pO2 VBG HCO3 VBG O2 Saturation VBG Base Excess Anion Gap Estim Creat Clear Calc Estimated GFR POC Glucose Random Glucose Calcium Total Bilirubin AST ALT Alkaline Phosphatase Ammonia Troponin I High Sens B-Natriuretic Peptide Total Protein Albumin [place] COVID-19 ([place]) COVID-19 Clin Com Imaging Radiologist's Impressions: Impressions Chest X-Ray 11/10/22 16:35 IMPRESSION: *Low lung volumes. *Mild left base airspace opacity which may represent mild atelectasis in the setting of low lung volumes. Mild focal consolidation could have a similar appearance. Head CT 11/10/22 18:05 IMPRESSION: 1. No evidence of acute intracranial hemorrhage or edematous territorial infarction. 2. Mild underlying microangiopathy and generalized cerebral volume loss. Chest CT 11/10/22 18:55 IMPRESSION: 1. Cardiomegaly with trace bilateral pleural effusions. 2. A few tiny micronodules are seen. 3. Cholelithiasis without cholecystitis. 4. Bilateral renal cysts, Bosniak class I and II which need no additional follow-up. 5. Bilateral nephrolithiasis and renal scarring. No hydronephrosis. Fleischner guidelines were followed. Assessment and Plan (1) Acute and chronic respiratory failure with hypoxia: Status: Acute (2) Acute metabolic encephalopathy: Status: Acute Plan 62-year-old female with history of bipolar disordered, hypertension, hyperlipidemia, paroxysmal atrial fibrillation not on anticoagulation, colon cancer s/p resection with end-colostomy, COPD, Oliguric ESRD on dialysis admitted for acute metabolic encephalopathy and acute hypoxia. #Acute encephalopathy- etiology unclear at this time -?hypoactive delerium -No infection suspect- CXR without infection. She is oliguric. No uremia. No significant hypercapnia on VBG, though ABG pending, TSH pending, ammonia normla -Neuro consult -Hold sedating medications #Acute on ?chronic hypoxic respiratory failure- likely 2/2 to hypoventilation related to above -Per [place] [facility], baseline O2 ranges 85-90% likely 2/2 COPD- could also be contirbuting to her recurrent encephalopathy -Continue supplemental O2 to maintain oximetry 90-92% -DDimer 238, low suspicion for PE. Vitals otherwise stable. Pt denies sob, cp, palps. Hold on further therapeutic lovenox. # [id number] type 2 diabetes with hypoglycemia -glucose on arrival 49, improved to 177 with 1 amp D50 -POC glucose -diabetic diet -Humalog on sliding scale # hypertension -blood pressure soft, hold home BP meds # bipolar disorder -continue lithium, Lamictal, sertraline. Hold Ativan in the setting of acute encephalopathy # ESRD on dialysis -continue sevelamer, midodrine -nephrology consult # paroxysmal atrial fibrillation-rate controlled -continue amiodarone. Hold metoprolol, blood pressure soft, resume as appropriate #anemia of chronic disease -H/H stable, above transfusion threshold DVT prophylaxis-received 100 mg IV Lovenox in the ED. SCPs Full code Patient requires inpatient stay at least 2 midnights for management of acute metabolic encephalopathy and acute hypoxic respiratory failure Time Spent With Patient Time: Total time managing care of this patient today ____ minutes. Quality Stroke Does the patient have a stroke diagnosis?: No VTE Prior VTE?: No VTE Risk Level:: Medical - moderate - high VTE Device Contraindication: N/A - Device Ordered VTE Drug Contraindication: Treatment Not Indicated
[2022-11-10 21:42] LABS: Glucose, Whole Blood 80 mg/dL (60-115)
--- NOTE | 2022-11-10 21:46 | PC.NURSE ---
Attempted to call report at 21:46, no answer
--- NOTE | 2022-11-10 21:57 | PC.NURSE ---
Attempted to call report at 21:58. Said she will call me back.
[2022-11-10 22:01] LABS: Folate 8.8 ng/mL (> or = 4.0); Vitamin B12 654 pg/mL (200-900)
[2022-11-10 22:25] LABS: TSH reflex Free T4 2.12 uIU/mL (0.32-4.0)
[2022-11-10 22:30] VITALS: BP 140/64; PULSE 84; RESP 18; TEMP 36.7; O2SAT 96
[2022-11-10 23:31] VITALS: BP 100/53; PULSE 76; RESP 18; TEMP 36.7; O2SAT 96
[2022-11-11] VITALS (8 sets, daily range): BP systolic 122–157; BP diastolic 59–70; PULSE 66–102; RESP 17–20; TEMP 36.6–37.6; O2SAT 86–97; BMI 32.4
[2022-11-11 06:27] LABS: MANUAL DIFF FLAG NO
[2022-11-11 06:38] LABS: Basophils Absolute Auto 0.1 X10*3/uL (0.0-0.2); Basophils Percent Auto 0.5 % (0-2); Eosinophils Absolute Auto 0.3 X10*3/uL (0.0-0.4); Hematocrit 24.3 % (37.0-47.0); Hemoglobin 7.4 g/dl (12.0-16.0); Imm Gran Abs Auto 0.12 X10*3/uL (0.00-0.03); Imm Gran Pct Auto 1.1 % (0.0-0.4); Lymphocytes Absolute Auto 1.3 X10*3/uL (1.2-4.9); Lymphocytes Percent Auto 12.4 % (20-40); Mean Corpuscular HGB Conc 30.5 g/dl (31.0-35.0); Mean Corpuscular Hemoglobin 32.7 pg (27.0-33.0); Mean Corpuscular Volume 107.5 fL (80.0-98.0); Mean Platelet Volume 8.7 fL (9.4-12.3); Monocytes Absolute Auto 0.7 X10*3/uL (0.1-1.2); Monocytes Percent Auto 6.6 % (2-11); Neutrophils Absolute Auto 8.3 x10*3/uL (2.0-8.3); Neutrophils Percent Auto 76.4 % (45-73); Platelet Count 242 X10*3/uL (160-400); Red Blood Count 2.26 X10*6/uL (4.20-5.50); Red Cell Distribution Width 16.1 % (11.0-16.0); White Blood Count 10.8 X10*3/uL (4.8-10.8)
[2022-11-11 07:07] LABS: Anion Gap 16 (12-20); Blood Urea Nitrogen 37 mg/dL (9-16); Calcium 9.4 mg/dL (8.4-10.2); Carbon Dioxide 29 mmol/L (22-29); Chloride 101 mmol/L (96-108); Creatinine Clr Calc Pharmacy 9.4; Estimated Glomerular Filt Rate 5; Glucose Random 94 mg/dL (60-115); Potassium 4.6 mmol/L (3.3-5.1); Sodium 141 mmol/L (135-145)
[2022-11-11 07:35] LABS: Glucose, Whole Blood 85 mg/dL (60-115)
[2022-11-11 08:06] LABS: Iron 47 mcg/dL (30-160); Percent Iron Saturation 23 % (15-50); Total Iron Binding Capacity 205 mcg/dL (228-428); Unsaturated Iron Binding 158 ug/dL
[2022-11-11] MEDS: 0.9 % Sodium Chloride Flush 3 ML SYRINGE IVFLUSH ×3 (08:33→20:27)
--- NOTE | 2022-11-11 09:09 | CONS_ITS ---
DATE OF SERVICE: 11/11/2022 HISTORY OF PRESENT ILLNESS: I was asked to see the patient to assist in evaluation and management of the patient's dialysis needs in the setting of being an ESRD, normally dialyzes Friday, , Friday. She received her last dialysis on Friday. She was just recently at [facility], was discharged and now gets readmitted to [facility] with altered mental status. She has multiple chronic medical problems including the ESRD, hypertension, hyperlipidemia, bipolar disorder with multiple admissions for psych related flares. History of colon cancer, status post resection, COPD, who again was present to the [facility] with altered mental status. PAST MEDICAL HISTORY: As mentioned. CURRENT MEDICATIONS: Noted in the MAR. ALLERGIES: SHE HAS MULTIPLE DRUG ALLERGIES, ALSO NOTED IN THE ELECTRONIC MEDICAL RECORD. FAMILY HISTORY: Noncontributory. SOCIAL HISTORY: She is nonsmoker, nondrinker. No illicit drug use. REVIEW OF SYSTEMS: As noted above. PHYSICAL EXAMINATION: VITAL SIGNS: Blood pressure of 120/70, heart rate in the 60s. HEAD: Atraumatic, normocephalic. NECK: Supple. Mucous membranes are moist. LUNGS: Clear. CARDIAC: Regular rate and rhythm without rub. ABDOMEN: Soft, nontender. Good bowel sounds. No CVA tenderness. EXTREMITIES: Show trace edema. LABORATORY DATA: Hemoglobin 7.4, hematocrit 24.3, white blood cell count 10.8. Sodium 141, potassium 4.6, chloride 41, bicarb 29. IMPRESSION: End-stage renal disease patient readmitted to the hospital with altered mental status. RECOMMENDATION: At this time include continue her on her dialysis Friday, , Friday. We will give her Procrit to help with supporting her anemia. Continue on her routine medications including phosphate binders. Continue her psych medications as noted. We will follow the patient with the team. MD PASCUAL Riley/ALEX / [phone]
--- NOTE | 2022-11-11 10:43 | MHC.CLN ---
NUTRITION PATIENT WITH DIABETES, ESRD AND RECEIVES HEMODIALYSIS. DIET CHANGED PER DIALYSIS PARAMETERS: DIABETIC 2000 KCAL, 2 GRAM SODIUM, LOW PHOSPHORUS, LOW POTASSIUM.
[2022-11-11 10:56] LABS: Glucose, Whole Blood 128 mg/dL (60-115)
--- NOTE | 2022-11-11 11:09 | PHA.MEDREC ---
Med rec complete, based off of medication MAR from [facility]. The procrit dose is listed as 200 units bi weekly, seems unusual, unable to verify since she gets this done at dialysis center not at home Pharmacy Consult ? Medication Reconciliation Pharmacy has completed the medication reconciliation.
--- NOTE | 2022-11-11 14:05 | P.PNIM_ITS ---
Subjective Subjective Date of Service: 11/11/22 Review of Systems Follow up hypoxia feeling better no c/o pain Physical Exam Vital Signs: Vital Signs: Last Vital Signs Temp 97.9 F 11/11/22 11:40 Pulse 80 11/11/22 11:40 Resp 20 11/11/22 11:40 BP 146/65 H 11/11/22 11:40 Pulse Ox 96 11/11/22 11:40 O2 Del Method Room Air 11/11/22 11:40 O2 Flow Rate 2 11/11/22 07:46 Oxygen Flow Rate 2 11/10/22 14:55 BMI result Body Mass Index 32.4 Appearing in no acute distress lung sounds are clear to auscultation heart regular rate rhythm, clear S1, S2 positive bowel sounds, abdomen is soft, nontender neuro patient is alert x3, no focal deficits Objective Data Active Medications Acetaminophen (Acetaminophen 325 Mg Tablet) 650 mg PO Q6H PRN PRN Reason: Pain, Mild (Pain Scale 1-3) Docusate Sodium (Docusate Sodium 100 Mg Capsule) 100 mg PO DAILY PRN PRN Reason: Constipation Glucose (Glucose Gel 15 Gm Gel..Gram.) 15 gm PO Q15M PRN; Protocol PRN Reason: per Hypoglycemia Standing Ord. Dextrose (D10) 250 mls @ 750 mls/hr IV Q15M PRN; Protocol PRN Reason: per Hypoglycemia Standing Ord. Insulin Human Lispro (Insulin Lispro 100 Unit/Ml 3 Ml Vial) 0 unit SUBCUT QIDACHS [facility]; Protocol Last Admin: 11/11/22 10:59 Dose: Not Given Documented By: DALE Non-Admin Reason: No Insulin Coverage Ondansetron HCl (Ondansetron Hcl 4 Mg/2 Ml Vial) 4 mg IVPUSH Q8H PRN PRN Reason: Nausea and Vomiting Pharmacy Consult (Consult Rx Perform Med Rec) 1 each MISCELLANE ONCE PRN PRN Reason: Consult order Sodium Chloride (0.9 % Sodium Chloride Flush 3 Ml Syringe) [facility] Last Admin: 11/11/22 08:33 Dose: 3 ml Documented By: DALE Labs 11/11/22 06:07 11/11/22 06:07 Labs: Laboratory Results - last 24 hr 11/10/22 11/10/22 11/10/22 15:49 16:20 16:21 MCV 108.4 H MCH 32.3 MCHC 29.8 L RDW 16.0 Plt Count 262 D MPV 8.6 L Immature Gran % (Auto) 1.1 H Neut % (Auto) 77.3 H Lymph % (Auto) 10.3 L [place] % (Auto) 8.7 Eos % (Auto) 2.1 Baso % (Auto) 0.5 Lymph # (Auto) 1.1 L [place] # (Auto) 0.9 Eos # (Auto) 0.2 Baso # (Auto) 0.1 Abs Immat Gran (auto) 0.12 H Absolute Neuts (auto) 8.3 Absolute Nucleated RBC 0.000 Nucleated RBC % (auto) 0.0 PT INR APTT D-Dimer High Sensitivty VBG pH VBG pCO2 VBG pO2 VBG HCO3 VBG O2 Saturation VBG Base Excess Anion Gap Estim Creat Clear Calc Estimated GFR POC Glucose Random Glucose Calcium Iron TIBC % Saturation Unsat Iron Binding Total Bilirubin AST ALT Alkaline Phosphatase Ammonia Troponin I High Sens B-Natriuretic Peptide Total Protein Albumin Vitamin B12 Folate TSH [place] 0.61 COVID-19 ([place]) Negative COVID-19 [employer] See Note 11/10/22 11/10/22 11/10/22 16:21 16:21 16:21 MCV MCH MCHC RDW Plt Count MPV Immature Gran % (Auto) Neut % (Auto) Lymph % (Auto) [place] % (Auto) Eos % (Auto) Baso % (Auto) Lymph # (Auto) [place] # (Auto) Eos # (Auto) Baso # (Auto) Abs Immat Gran (auto) Absolute Neuts (auto) Absolute Nucleated RBC Nucleated RBC % (auto) PT 10.1 INR 0.9 APTT D-Dimer High Sensitivty 238 VBG pH VBG pCO2 VBG pO2 VBG HCO3 VBG O2 Saturation VBG Base Excess Anion Gap 19 Estim Creat Clear Calc 11.5 Estimated GFR 7 POC Glucose Random Glucose 49 L* Calcium 10.2 Iron TIBC % Saturation Unsat Iron Binding Total Bilirubin 0.5 AST 14 ALT 13 Alkaline Phosphatase 119 H Ammonia Troponin I High Sens 10.5 B-Natriuretic Peptide Total Protein 6.7 Albumin 4.1 Vitamin B12 654 Folate 8.8 TSH 2.12 [place] COVID-19 ([place]) COVID-[employer] Com 11/10/22 11/10/22 11/10/22 16:21 16:21 16:21 MCV MCH MCHC RDW Plt Count MPV Immature Gran % (Auto) Neut % (Auto) Lymph % (Auto) [place] % (Auto) Eos % (Auto) Baso % (Auto) Lymph # (Auto) [place] # (Auto) Eos # (Auto) Baso # (Auto) Abs Immat Gran (auto) Absolute Neuts (auto) Absolute Nucleated RBC Nucleated RBC % (auto) PT INR APTT D-Dimer High Sensitivty Cancelled VBG pH VBG pCO2 VBG pO2 VBG HCO3 VBG O2 Saturation VBG Base Excess Anion Gap Estim Creat Clear Calc Estimated GFR POC Glucose Random Glucose Calcium Iron TIBC % Saturation Unsat Iron Binding Total Bilirubin AST ALT Alkaline Phosphatase Ammonia 20 Troponin I High Sens B-Natriuretic Peptide 45 Total Protein Albumin Vitamin B12 Folate TSH [place] COVID-19 ([place]) COVID-19 [employer] 11/10/22 11/10/22 11/10/22 16:42 17:55 20:39 MCV 106.6 H MCH 32.0 MCHC 30.0 L RDW 16.2 H Plt Count 231 MPV 8.6 L Immature Gran % (Auto) Neut % (Auto) Lymph % (Auto) [place] % (Auto) Eos % (Auto) Baso % (Auto) Lymph # (Auto) [place] # (Auto) Eos # (Auto) Baso # (Auto) Abs Immat Gran (auto) Absolute Neuts (auto) Absolute Nucleated RBC 0.000 Nucleated RBC % (auto) 0.0 PT INR APTT D-Dimer High Sensitivty VBG pH 7.45 H VBG pCO2 55 VBG pO2 38 VBG HCO3 38 H VBG O2 Saturation 57.0 VBG Base Excess 13.2 Anion Gap Estim Creat Clear Calc Estimated GFR POC Glucose 171 H Random Glucose Calcium Iron TIBC % Saturation Unsat Iron Binding Total Bilirubin AST ALT Alkaline Phosphatase Ammonia Troponin I High Sens B-Natriuretic Peptide Total Protein Albumin Vitamin B12 Folate TSH [place] COVID-19 ([place]) COVID-19 [employer] 11/10/22 11/10/22 11/11/22 20:39 21:40 06:07 MCV 107.5 H MCH 32.7 MCHC 30.5 L RDW 16.1 H Plt Count 242 MPV 8.7 L Immature Gran % (Auto) 1.1 H Neut % (Auto) 76.4 H Lymph % (Auto) 12.4 L [place] % (Auto) 6.6 Eos % (Auto) 3.0 Baso % (Auto) 0.5 Lymph # (Auto) 1.3 [place] # (Auto) 0.7 Eos # (Auto) 0.3 Baso # (Auto) 0.1 Abs Immat Gran (auto) 0.12 H Absolute Neuts (auto) 8.3 Absolute Nucleated RBC 0.000 Nucleated RBC % (auto) 0.0 PT 10.2 INR 0.9 APTT 29.6 D-Dimer High Sensitivty VBG pH VBG pCO2 VBG pO2 VBG HCO3 VBG O2 Saturation VBG Base Excess Anion Gap Estim Creat Clear Calc Estimated GFR POC Glucose 80 Random Glucose Calcium Iron TIBC % Saturation Unsat Iron Binding Total Bilirubin AST ALT Alkaline Phosphatase Ammonia Troponin I High Sens B-Natriuretic Peptide Total Protein Albumin Vitamin B12 Folate TSH [place] COVID-19 ([place]) COVID-19 [employer] 11/11/22 11/11/22 11/11/22 06:07 07:29 10:49 MCV MCH MCHC RDW Plt Count MPV Immature Gran % (Auto) Neut % (Auto) Lymph % (Auto) [place] % (Auto) Eos % (Auto) Baso % (Auto) Lymph # (Auto) [place] # (Auto) Eos # (Auto) Baso # (Auto) Abs Immat Gran (auto) Absolute Neuts (auto) Absolute Nucleated RBC Nucleated RBC % (auto) PT INR APTT D-Dimer High Sensitivty VBG pH VBG pCO2 VBG pO2 VBG HCO3 VBG O2 Saturation VBG Base Excess Anion Gap 16 Estim Creat Clear Calc 9.4 Estimated GFR 5 POC Glucose 85 128 H Random Glucose 94 Calcium 9.4 D Iron 47 TIBC 205 L % Saturation 23 Unsat Iron Binding 158 Total Bilirubin AST ALT Alkaline Phosphatase Ammonia Troponin I High Sens B-Natriuretic Peptide Total Protein Albumin Vitamin B12 Folate TSH [place] COVID-19 ([place]) COVID-19 [employer] Assessment and Plan (1) Acute and chronic respiratory failure with hypoxia: Status: Acute Plan 62-year-old female with history of bipolar disordered, hypertension, hyperlipidemia, paroxysmal atrial fibrillation not on anticoagulation, colon cancer s/p resection with end-colostomy, COPD, Oliguric ESRD on dialysis admitted for acute metabolic encephalopathy and acute hypoxia. Acute encephalopathy- etiology unclear at this time ?hypoactive delerium No infection suspect- CXR without infection. She is oliguric. No uremia. No significant hypercapnia on VBG, though ABG pending, TSH pending, ammonia normla Neuro consult Hold sedating medications Acute on ?chronic hypoxic respiratory failure- likely 2/2 to hypoventilation related to above Per fdc, baseline O2 ranges 85-90% likely 2/2 COPD- could also be contributing to her recurrent encephalopathy Continue supplemental O2 to maintain oximetry 90-92% DDimer 238 home oxygen eval pending [id number] type 2 diabetes with hypoglycemia ss, ada diet hypertension blood pressure soft, hold home BP meds bipolar disorder continue lithium, Lamictal, sertraline.? Hold Ativan in the setting of acute encephalopathy ESRD on dialysis continue sevelamer, midodrine nephrology following dialysis TTS paroxysmal atrial fibrillation-rate controlled continue amiodarone.? Hold metoprolol, blood pressure soft, resume as appropriate anemia of chronic disease H/H stable, above transfusion threshold Procrit as per nephrology DVT prophylaxis SCD Attending Dr. Navarrete Full code continued hospital stay for management of acute metabolic encephalopathy and acute hypoxic respiratory failure Time Spent With Patient Time: Total time managing care of this patient today ____ minutes. Quality Stroke Does the patient have a stroke diagnosis?: No VTE Prior VTE?: No VTE Risk Level:: Medical - moderate - high VTE Device Contraindication: N/A - Device Ordered VTE Drug Contraindication: Treatment Not Indicated
--- NOTE | 2022-11-11 14:22 | MHC.CM.PN ---
IMM 11/11/22, EMR REVIEWED, PT ADMITTED W/HYPOXIA AND ENCEPHALOPATHY, PT RESIDES AT [facility], CM CONTACTED NURSING AT [facility] AND SHE REPORTED THEY CAN NOT ACCOMMODATE PT'S ON O2, HOME O2 EVAL CURRENTLY PENDING. PT REPORTS SHE DOES GET ASSISTANCE AT [facility] AND SHE HAS A WALKER HOWEVER DOES NOT NEED TO USE IT, PT USES [facility] FOR TRANSPORT AND CM WILL NEED TO CALL [facility] TRANSPORTATION LINE WHEN PT IS CLEARED FOR D/C. PT VERIFIES PCP IS DR SKYLER STEPHEN, PT REPORTS SHE HAS BEEN VACC FOR COVID 19 HOWEVER UNSURE HOW MANY TIMES AND HCP/MOLST ON FILE. ANTIC PT WILL WEAN OFF O2 AND D/C BACK TO [facility] VS STR. TRANSPORT PENDING DISPO
[2022-11-11 16:24] LABS: Glucose, Whole Blood 104 mg/dL (60-115)
[2022-11-11] MEDS: OLANZapine 10 MG TABLET PO (18:38)
[2022-11-11] MEDS: Sertraline HCL 100 MG TABLET PO (18:38)
[2022-11-11] MEDS: Amiodarone HCL 200 MG TABLET PO (18:39)
[2022-11-11] MEDS: Sevelamer Carbonate Tablet 800 MG TABLET 1600 MG PO (18:39)
[2022-11-11 19:51] LABS: Glucose, Whole Blood 128 mg/dL (60-115)
[2022-11-11] MEDS: OLANZapine 7.5 MG TABLET 15 MG PO (20:26)
[2022-11-11] MEDS: Docusate Sodium 100 MG CAPSULE 200 MG PO (20:26)
[2022-11-11 21:04] LABS: INTERNATIONAL NORM RATIO 0.9 (0.9-1.1); Prothrombin Time 10.5 SEC (10.0-13.1)
[2022-11-12] VITALS (7 sets, daily range): BP systolic 91–138; BP diastolic 55–72; PULSE 65–83; RESP 16–20; TEMP 36.7–37.3; O2SAT 91–97
[2022-11-12 07:12] LABS: Anion Gap 18 (12-20); Blood Urea Nitrogen 55 mg/dL (9-16); Calcium 9.7 mg/dL (8.4-10.2); Carbon Dioxide 26 mmol/L (22-29); Chloride 101 mmol/L (96-108); Glucose Random 109 mg/dL (60-115); Potassium 5.1 mmol/L (3.3-5.1); Sodium 140 mmol/L (135-145)
[2022-11-12 07:16] LABS: Creatinine Clr Calc Pharmacy 6.7; Estimated Glomerular Filt Rate 4
[2022-11-12 07:24] LABS: Glucose, Whole Blood 93 mg/dL (60-115)
--- NOTE | 2022-11-12 10:48 | MHC.CM.PN ---
Per ROUNDS discussion, Patient is medically cleared for dc today. CM spoke with the General Internal Medicine Doctor of [facility] (Grace @ [phone])who indicated that Patient can return on O2. CM awaits a return call from [facility] to discuss dc planning. CM will follow.
--- NOTE | 2022-11-12 11:02 | P.PNIM_ITS ---
Subjective Subjective Date of Service: 11/12/22 Review of Systems Follow up hypoxia feeling better no c/o pain Physical Exam Vital Signs: Vital Signs: Last Vital Signs Temp 98.0 F 11/12/22 07:31 Pulse 66 11/12/22 07:31 Resp 16 11/12/22 07:31 BP 137/60 11/12/22 07:31 Pulse Ox 95 11/12/22 07:31 O2 Del Method Nasal Cannula 11/12/22 07:31 O2 Flow Rate 2 11/12/22 07:31 Oxygen Flow Rate 2 11/10/22 14:55 BMI result Body Mass Index 32.4 Appearing in no acute distress lung sounds are clear to auscultation heart regular rate rhythm, clear S1, S2 positive bowel sounds, abdomen is soft, nontender neuro patient is alert x3, no focal deficits Objective Data Active Medications Acetaminophen (Acetaminophen 325 Mg Tablet) 650 mg PO Q6H PRN PRN Reason: Pain, Mild (Pain Scale 1-3) Amiodarone HCl (Amiodarone Hcl 200 Mg Tablet) 200 mg PO DAILY [facility] Last Admin: 11/11/22 18:39 Dose: 200 mg Documented By: DALE Aspirin (Aspirin Enteric Coated 81 Mg Tablet.) 81 mg PO DAILY [facility] Calcitriol (Calcitriol 0.25 Mcg Capsule) 1 mcg PO TUTHSA@0800 [facility] Chlorpromazine HCl (Chlorpromazine Hcl 25 Mg Tablet) 50 mg PO TUTHSA@0800 [facility] Docusate Sodium (Docusate Sodium 100 Mg Capsule) 100 mg PO DAILY PRN PRN Reason: Constipation Docusate Sodium (Docusate Sodium 100 Mg Capsule) 200 mg PO BID [facility] Last Admin: 11/11/22 20:26 Dose: 200 mg Documented By: VENU Famotidine (Famotidine 20 Mg Tablet) 20 mg PO DAILY [facility] Ferrous Sulfate (Ferrous Sulfate 324 Mg Tablet.) 324 mg PO DAILY [facility] Fluticasone/Vilanterol (Fluticasone/Vilanterol 200/25 Blst.W.Dev) 1 puff INHALE RDAILY [facility] Gabapentin (Gabapentin 100 Mg Capsule) 100 mg PO DAILY [facility] Glucose (Glucose Gel 15 Gm Gel..Gram.) 15 gm PO Q15M PRN; Protocol PRN Reason: per Hypoglycemia Standing Ord. Dextrose (D10) 250 mls @ 750 mls/hr IV Q15M PRN; Protocol PRN Reason: per Hypoglycemia Standing Ord. Insulin Human Lispro (Insulin Lispro 100 Unit/Ml 3 Ml Vial) 0 unit SUBCUT QIDACHS [facility]; Protocol Last Admin: 11/12/22 07:42 Dose: Not Given Documented By: PANCHO Non-Admin Reason: No Insulin Coverage Lactulose (Lactulose 20 Gm/30 Ml Solution) 20 gm PO TID PRN PRN Reason: Constipation Lamotrigine (Lamotrigine 100 Mg Tablet) 200 mg PO DAILY [facility] Crestview Carbonate ([place] Carbonate 300 Mg Capsule) 600 mg PO TUTHSA@2000 [facility] Magnesium Hydroxide (Milk Of Magnesia 30 Ml Oral.Susp) 30 ml PO BEDTIME [facility] Last Admin: 11/11/22 20:27 Dose: Not Given Documented By: VENU Non-Admin Reason: Patient Refused Melatonin (Melatonin 3 Mg Tablet) 9 mg PO BEDTIME [facility] Last Admin: 11/11/22 20:27 Dose: Not Given Documented By: VENU Non-Admin Reason: Patient Refused Midodrine (Midodrine Hcl 10 Mg Tablet) 10 mg PO TIDWM [facility]; Protocol Multivitamins/Vitamin C (Multivitamin Tablet) 1 tab PO DAILY [facility] Olanzapine (Olanzapine 7.5 Mg Tablet) 15 mg PO BEDTIME [facility] Last Admin: 11/11/22 20:26 Dose: 15 mg Documented By: VENU Comments: notified and ordered to administer to medication Olanzapine (Olanzapine 10 Mg Tablet) 10 mg PO DAILY [facility] Last Admin: 11/11/22 18:38 Dose: 10 mg Documented By: DALE Ondansetron HCl (Ondansetron Hcl 4 Mg/2 Ml Vial) 4 mg IVPUSH Q8H PRN PRN Reason: Nausea and Vomiting Pharmacy Consult (Consult Rx Perform Med Rec) 1 each MISCELLANE ONCE PRN PRN Reason: Consult order Polyethylene Glycol (Polyethylene Glycol 3350 17 Gm Powd.Pack) 17 gm PO DAILY PRN PRN Reason: Constipation Sertraline HCl (Sertraline Hcl 100 Mg Tablet) 100 mg PO DAILY [facility] Last Admin: 11/11/22 18:38 Dose: 100 mg Documented By: DALE Sevelamer Carbonate (Sevelamer Carbonate Tablet 800 Mg Tablet) 1,600 mg PO TIDWM [facility] Last Admin: 11/11/22 18:39 Dose: 1,600 mg Documented By: DALE Sodium Chloride (0.9 % Sodium Chloride Flush 3 Ml Syringe) 3 ml IVFLUSH QSHIFT [facility] Last Admin: 11/11/22 20:27 Dose: 3 ml Documented By: VENU Thiamine HCl (Thiamine Hcl 100 Mg Tablet) 100 mg PO DAILY [facility] Labs 11/11/22 06:07 11/12/22 06:08 Labs: Laboratory Results - last 24 hr 11/11/22 11/11/22 11/11/22 16:04 19:45 20:34 PT 10.5 INR 0.9 Anion Gap Estim Creat Clear Calc Estimated GFR POC Glucose 104 128 H Random Glucose Calcium 11/12/22 11/12/22 06:08 07:17 PT INR Anion Gap 18 Estim Creat Clear Calc 6.7 Estimated GFR 4 POC Glucose 93 Random Glucose 109 Calcium 9.7 Assessment and Plan (1) Acute and chronic respiratory failure with hypoxia: Status: Acute Plan 62-year-old female with history of bipolar disordered, hypertension, hyperlipidemia, paroxysmal atrial fibrillation not on anticoagulation, colon cancer s/p resection with end-colostomy, COPD, Oliguric ESRD on dialysis admitted for acute metabolic encephalopathy and acute hypoxia. Acute on ?chronic hypoxic respiratory failure- likely 2/2 to hypoventilation related to above Per fci, baseline O2 ranges 85-90% likely 2/2 COPD- could also be contributing to her recurrent encephalopathy Continue supplemental O2 to maintain oximetry 90-92% DDimer 238, no concern for PE home oxygen> 2 Liters with activity Acute encephalopathy-Resolved ?hypoactive delerium vs hypoxia No infection suspect- CXR without infection. No uremia. No significant hypercapnia on VBG, TSH 2.12, ammonia normal initally held sedating medications, restart ESRD on dialysis continue sevelamer, midodrine nephrology following dialysis TTS [id number] type 2 diabetes with hypoglycemia ss, ada diet hypertension blood pressure soft, hold home BP meds restart as BP allows bipolar disorder continue lithium, Lamictal, sertraline.? paroxysmal atrial fibrillation-rate controlled continue amiodarone.? Hold metoprolol, blood pressure soft, resume as appropriate anemia of chronic disease H/H stable, above transfusion threshold Procrit as per nephrology DVT prophylaxis SCD Attending Dr. Navarrete Full code DISPO plan for STR, [facility] will not take her with continuous oxygen continued hospital stay for management of acute metabolic encephalopathy and acute hypoxic respiratory failure Time Spent With Patient Time: Total time managing care of this patient today ____ minutes. Quality Stroke Does the patient have a stroke diagnosis?: No VTE Prior VTE?: No VTE Risk Level:: Medical - moderate - high VTE Device Contraindication: N/A - Device Ordered VTE Drug Contraindication: Treatment Not Indicated
[2022-11-12 11:08] LABS: Glucose, Whole Blood 116 mg/dL (60-115)
--- NOTE | 2022-11-12 12:07 | MHC.CM.PN ---
CM spoke again with [facility] Stemming Machine Operator/Grace @ [phone], who instructed this CM to send Patient back to them and they will send her to [facility](Stating Patient should never have come here, should have gone to [facility]/too complicated). CM relayed this message to CM Director, who instructed CM to discuss with MEDICAL CONCIERGE/Ramila. Ramila will be calling Grace and CM will follow.
--- NOTE | 2022-11-12 12:18 | MHC.CM.PN ---
Per DEMAND MANAGER/escobar, [facility] Operator is now saying that it is regulation that Patient cannot return to the [facility] on continuous O2. PT attempted to see Patient but Patient was unavailable and PT eval will be needed to obtain [facility] auth for STR. CM will follow.
--- NOTE | 2022-11-12 12:29 | MHC.CM.PN ---
CM met with Patient at bedside in HD to discuss dc planning. CM explained to Patient that per the Cable Weaver at [facility], Patient is not able to return to that LOC on CONTINUOUS O2. Patient is agreeable to a SNF search for STR with the goal of weaning the continuous O2 and then returning to [facility]. CM will follow.Patient typically goes to HD @ [facility].
[2022-11-12] MEDS: Sevelamer Carbonate Tablet 800 MG TABLET 1600 MG PO ×2 (14:08→17:01)
[2022-11-12] MEDS: Midodrine HCl 10 MG TABLET PO ×2 (14:08→17:01)
--- NOTE | 2022-11-12 14:34 | PM.PNNEP ---
Subjective Subjective Date of Service: 11/12/22 Interval history: Seen on HD this AM. Tolerating HD. Hemodynamics stable on HD; D/W HD RN Physical Exam Vital Signs: Vital Signs: Last Vital Signs Temp 98.3 F 11/12/22 12:00 Pulse 65 11/12/22 12:00 Resp 16 11/12/22 12:00 BP 91/58 L 11/12/22 12:00 Pulse Ox 95 11/12/22 07:31 O2 Del Method Nasal Cannula 11/12/22 12:00 O2 Flow Rate 2 11/12/22 12:00 Oxygen Flow Rate 2 11/10/22 14:55 BMI result Body Mass Index 32.4 Const: General: comfortable Orientation/consciousness: patient oriented x3 Eyes: EOM: EOMs intact bilaterally Neck: Neck: Yes supple Resp: Auscultation: diminished lung sounds Cardio: Rate: regular rate GI: Palpation (GI): Soft to palpation Skin: General skin exam: no rashes or lesions noted Neuro: General: patient oriented x3 and moves all extremities Objective Data Labs 11/11/22 06:07 11/12/22 06:08 Labs: Laboratory Results - last 24 hr 11/11/22 11/11/22 11/11/22 16:04 19:45 20:34 PT 10.5 INR 0.9 Sodium Potassium Chloride Carbon Dioxide Anion Gap BUN Creatinine Estim Creat Clear Calc Estimated GFR POC Glucose 104 128 H Random Glucose Calcium 11/12/22 11/12/22 11/12/22 06:08 07:17 10:58 PT INR Sodium 140 Potassium 5.1 Chloride 101 Carbon Dioxide 26 Anion Gap 18 BUN 55 H Creatinine 10.58 H* Estim Creat Clear Calc 6.7 Estimated GFR 4 POC Glucose 93 116 H Random Glucose 109 Calcium 9.7 Procedures Date of Service Date of Service: 11/12/22 Assessment & Plan Assessment and plan (1) ESRD needing dialysis: Status: Acute Assessment and Plan: Seen on HD Usually gets HD on TTS Tolerating HD well Continued volume optimization on HD Midodrine 10 mg PO tid Renal Diet; Phos binders with meals Procrit [id number] Units once a week Progress Note: Quality Stroke Does the patient have a stroke diagnosis?: No
[2022-11-12 15:21] LABS: Glucose, Whole Blood 161 mg/dL (60-115)
[2022-11-12] MEDS: 0.9 % Sodium Chloride Flush 3 ML SYRINGE IVFLUSH ×2 (17:01→20:36)
[2022-11-12 19:40] LABS: Glucose, Whole Blood 134 mg/dL (60-115)
[2022-11-12] MEDS: Lithium Carbonate 300 MG CAPSULE 600 MG PO (20:34)
[2022-11-12] MEDS: OLANZapine 7.5 MG TABLET 15 MG PO (20:35)
[2022-11-12] MEDS: Docusate Sodium 100 MG CAPSULE 200 MG PO (20:35)
[2022-11-13] VITALS (7 sets, daily range): BP systolic 115–142; BP diastolic 57–63; PULSE 63–101; RESP 18–20; TEMP 36.3–36.9; O2SAT 93–98
[2022-11-13 06:33] LABS: Lithium 0.78 mmol/L (0.60-1.20)
[2022-11-13 07:52] LABS: Glucose, Whole Blood 107 mg/dL (60-115)
--- NOTE | 2022-11-13 08:54 | P.PNNP_ITS ---
Subjective Subjective Date of Service: 11/13/22 Interval history: Seen this AM. Had been tolerating HD. Hemodynamics had been stable on HD; D/W HD RN yesterday Physical Exam Vital Signs: Vital Signs: Last Vital Signs Temp 97.8 F 11/13/22 07:49 Pulse 64 11/13/22 07:49 Resp 18 11/13/22 07:49 BP 119/58 L 11/13/22 07:49 Pulse Ox 95 11/13/22 07:49 O2 Del Method Nasal Cannula 11/13/22 07:49 O2 Flow Rate 2 11/13/22 07:49 Oxygen Flow Rate 2 11/10/22 14:55 BMI result Body Mass Index 32.4 Const: General: no acute distress Orientation/consciousness: patient oriented x3 Eyes: EOM: EOMs intact bilaterally Resp: Auscultation: diminished lung sounds Cardio: Rate: regular rate GI: Palpation (GI): Soft to palpation Neuro: General: patient oriented x3 and moves all extremities Objective Data Labs 11/11/22 06:07 11/12/22 06:08 Labs: Laboratory Results - last 24 hr 11/12/22 11/12/22 11/12/22 10:58 15:17 19:30 POC Glucose 116 H 161 H 134 H [place] 11/13/22 11/13/22 05:53 07:44 POC Glucose 107 [place] 0.78 Procedures Date of Service Date of Service: 11/13/22 Assessment & Plan Assessment and plan (1) ESRD needing dialysis: Status: Acute Assessment and Plan: Usually gets HD on TTS- Due tomorrow Had been tolerating HD well Continued volume optimization on HD Midodrine 10 mg PO tid Renal Diet; Phos binders with meals Procrit 82038 Units once a week Progress Note: Quality Stroke Does the patient have a stroke diagnosis?: No
[2022-11-13] MEDS: Ferrous Sulfate 324 MG TABLET.DR PO (08:56)
[2022-11-13] MEDS: Sevelamer Carbonate Tablet 800 MG TABLET 1600 MG PO ×3 (08:56→17:23)
[2022-11-13] MEDS: Multivitamin TABLET 1 TAB PO (08:57)
[2022-11-13] MEDS: Docusate Sodium 100 MG CAPSULE 200 MG PO ×2 (08:57→20:06)
[2022-11-13] MEDS: Gabapentin 100 MG CAPSULE PO (08:57)
[2022-11-13] MEDS: Aspirin Enteric Coated 81 MG TABLET.DR PO (08:57)
[2022-11-13] MEDS: Famotidine 20 MG TABLET PO (08:57)
[2022-11-13] MEDS: OLANZapine 10 MG TABLET PO (08:57)
[2022-11-13] MEDS: Thiamine HCL 100 MG TABLET PO (08:57)
[2022-11-13] MEDS: lamoTRIgine 100 MG TABLET 200 MG PO (08:57)
[2022-11-13] MEDS: Sertraline HCL 100 MG TABLET PO (08:57)
[2022-11-13] MEDS: Midodrine HCl 10 MG TABLET PO ×2 (08:57→17:23)
[2022-11-13] MEDS: Amiodarone HCL 200 MG TABLET PO (08:57)
[2022-11-13] MEDS: 0.9 % Sodium Chloride Flush 3 ML SYRINGE IVFLUSH ×2 (09:00→17:23)
[2022-11-13 11:29] LABS: Glucose, Whole Blood 117 mg/dL (60-115)
--- NOTE | 2022-11-13 12:22 | MHC.CM.PN ---
PAVAN spoke with ROWENA/Jean at [phone] and updated him on the dc plan. Jean indicated that Patient has been to [facility] in the past and was transported from there to [facility]. PAVAN has expanded the SNF search to include [facility]. PAVAN will follow.
--- NOTE | 2022-11-13 14:21 | P.PNIM_ITS ---
Subjective Subjective Date of Service: 11/13/22 Interval History: no breathing problems no cough or dyspnea eating well HD TuThSa Review of Systems Review of Systems: Yes all other systems are reviewed and are negative Physical Exam Vital Signs: Vital Signs: Last Vital Signs Temp 97.3 F 11/13/22 11:53 Pulse 72 11/13/22 11:53 Resp 20 11/13/22 11:53 BP 130/59 L 11/13/22 11:53 Pulse Ox 96 11/13/22 11:53 O2 Del Method Nasal Cannula 11/13/22 11:53 O2 Flow Rate 2 11/13/22 11:53 Oxygen Flow Rate 2 11/10/22 14:55 BMI result Body Mass Index 32.4 Gen: in no acute distress HEENT: sclera anicteric, moist mucus membranes Neck: supple Lungs: clear to auscultation bilaterally Heart: regular rate and rhythm, no murmurs Abd: soft, non-tender, non-distended Ext: no edema Skin: warm/well-perfused Neuro: alert and oriented x3, no focal findings Psych: appropriate affect Objective Data Active Medications Acetaminophen (Acetaminophen 325 Mg Tablet) 650 mg PO Q6H PRN PRN Reason: Pain, Mild (Pain Scale 1-3) Amiodarone HCl (Amiodarone Hcl 200 Mg Tablet) 200 mg PO DAILY [facility] Last Admin: 11/13/22 08:57 Dose: 200 mg Documented By: MADELEINE Aspirin (Aspirin Enteric Coated 81 Mg Tablet.) 81 mg PO DAILY [facility] Last Admin: 11/13/22 08:57 Dose: 81 mg Documented By: MADELEINE Calcitriol (Calcitriol 0.25 Mcg Capsule) 1 mcg PO TUTHSA@0800 [facility] Last Admin: 11/12/22 13:44 Dose: Not Given Documented By: PANCHO Non-Admin Reason: Off Unit: Surgery Chlorpromazine HCl (Chlorpromazine Hcl 25 Mg Tablet) 50 mg PO TUTHSA@0800 [facility] Last Admin: 11/12/22 13:45 Dose: Not Given Documented By: PANCHO Non-Admin Reason: Off Unit: Surgery Docusate Sodium (Docusate Sodium 100 Mg Capsule) 100 mg PO DAILY PRN PRN Reason: Constipation Docusate Sodium (Docusate Sodium 100 Mg Capsule) 200 mg PO BID [facility] Last Admin: 11/13/22 08:57 Dose: 200 mg Documented By: MADELEINE Famotidine (Famotidine 20 Mg Tablet) 20 mg PO DAILY [facility] Last Admin: 11/13/22 08:57 Dose: 20 mg Documented By: MADELEINE Ferrous Sulfate (Ferrous Sulfate 324 Mg Tablet.Dr) 324 mg PO DAILY [facility] Last Admin: 11/13/22 08:56 Dose: 324 mg Documented By: MADELEINE Fluticasone/Vilanterol (Fluticasone/Vilanterol 200/25 Blst.W.Dev) 1 puff INHALE RDAILY [facility] Last Admin: 11/13/22 07:44 Dose: Not Given Documented By: DEVAN Non-Admin Reason: Med Not Available Gabapentin (Gabapentin 100 Mg Capsule) 100 mg PO DAILY [facility] Last Admin: 11/13/22 08:57 Dose: 100 mg Documented By: MADELEINE Glucose (Glucose Gel 15 Gm Gel..Gram.) 15 gm PO Q15M PRN; Protocol PRN Reason: per Hypoglycemia Standing Ord. Dextrose (D10) 250 mls @ 750 mls/hr IV Q15M PRN; Protocol PRN Reason: per Hypoglycemia Standing Ord. Insulin Human Lispro (Insulin Lispro 100 Unit/Ml 3 Ml Vial) 0 unit SUBCUT QIDACHS [facility]; Protocol Last Admin: 11/13/22 11:58 Dose: Not Given Documented By: PANCHO Non-Admin Reason: No Insulin Coverage Lactulose (Lactulose 20 Gm/30 Ml Solution) 20 gm PO TID PRN PRN Reason: Constipation Lamotrigine (Lamotrigine 100 Mg Tablet) 200 mg PO DAILY [facility] Last Admin: 11/13/22 08:57 Dose: 200 mg Documented By: MADELEINE [place] Carbonate ([place] Carbonate 300 Mg Capsule) 600 mg PO TUTHSA@2000 [facility] Last Admin: 11/12/22 20:34 Dose: 600 mg Documented By: VENU Magnesium Hydroxide (Milk Of Magnesia 30 Ml Oral.Susp) 30 ml PO BEDTIME [facility] Last Admin: 11/12/22 20:35 Dose: Not Given Documented By: VENU Non-Admin Reason: Patient Refused Melatonin (Melatonin 3 Mg Tablet) 9 mg PO BEDTIME [facility] Last Admin: 11/12/22 20:35 Dose: Not Given Documented By: VENU Non-Admin Reason: Patient Refused Midodrine (Midodrine Hcl 10 Mg Tablet) 10 mg PO TIDWM [facility]; Protocol Last Admin: 11/13/22 13:12 Dose: Not Given Documented By: PANCHO Non-Admin Reason: BP 130/59 Multivitamins/Vitamin C (Multivitamin Tablet) 1 tab PO DAILY [facility] Last Admin: 11/13/22 08:57 Dose: 1 tab Documented By: MADELEINE Olanzapine (Olanzapine 7.5 Mg Tablet) 15 mg PO BEDTIME [facility] Last Admin: 11/12/22 20:35 Dose: 15 mg Documented By: VENU Olanzapine (Olanzapine 10 Mg Tablet) 10 mg PO DAILY [facility] Last Admin: 11/13/22 08:57 Dose: 10 mg Documented By: MADELEINE Ondansetron HCl (Ondansetron Hcl 4 Mg/2 Ml Vial) 4 mg IVPUSH Q8H PRN PRN Reason: Nausea and Vomiting Pharmacy Consult (Consult Rx Perform Med Rec) 1 each MISCELLANE ONCE PRN PRN Reason: Consult order Polyethylene Glycol (Polyethylene Glycol 3350 17 Gm Powd.Pack) 17 gm PO DAILY PRN PRN Reason: Constipation Sertraline HCl (Sertraline Hcl 100 Mg Tablet) 100 mg PO DAILY [facility] Last Admin: 11/13/22 08:57 Dose: 100 mg Documented By: MADELEINE Sevelamer Carbonate (Sevelamer Carbonate Tablet 800 Mg Tablet) 1,600 mg PO TIDWM [facility] Last Admin: 11/13/22 13:19 Dose: 1,600 mg Documented By: PANCHO Sodium Chloride (0.9 % Sodium Chloride Flush 3 Ml Syringe) 3 ml IVFLUSH [facility] Last Admin: 11/13/22 09:00 Dose: 3 ml Documented By: MADELEINE Thiamine HCl (Thiamine Hcl 100 Mg Tablet) 100 mg PO DAILY [facility] Last Admin: 11/13/22 08:57 Dose: 100 mg Documented By: MADELEINE Labs 11/11/22 06:07 11/12/22 06:08 Labs: Laboratory Results - last 24 hr 11/12/22 11/12/22 11/13/22 15:17 19:30 05:53 POC Glucose 161 H 134 H [place] 0.78 11/13/22 11/13/22 07:44 11:26 POC Glucose 107 117 H [place] Assessment and Plan (1) Acute and chronic respiratory failure with hypoxia: Status: Acute Plan d#4 62yo F with bipolar disorder, HLD, paroxysmal AF not on AC, colon s/p resection with end-colostomy, COPD, oliguric ESRD on HD admitted for encephalopathy ultimately due to hypoxia # acute/?chronic hypoxic resp failure - [facility], baseline SaO2 85-90% likely due to COPD - continue suppl O2 to maintain SaO2 90-92%, now dependent on 2L and as such cannot return to penitentiary # acute encephalopathy - resolved, likely hypoxia vs hypoactive delirium - no infection suspected- CXR without infection; no uremia; o significant hypercapnia on VBG; TSH 2.12; ammonia normal - initally held sedating medications; restarted # ESRD on dialysis - continue sevelamer, midodrine - Nephrology following - dialysis TuThSa # DM2 - reji-dose lispro # paroxysmal AF - continue amiodarone; does not appear to be on any rate control agent but HR is controlled - not on AC # bipolar disorder - continue sertraline, lamotrigine, lithium, olanzapine, chlorpromazine # anemia of ESRD - H+H stable; CARLOS per Nephrology # VTE ppx: SCDs # dispo: plan STR In my clinical judgment, the patient requires continued inpatient hospitalization for the following reasons: placement Time Spent With Patient Time: Total time managing care of this patient today ___35_ minutes. Quality Stroke Does the patient have a stroke diagnosis?: No VTE Prior VTE?: No VTE Risk Level:: Medical - moderate - high VTE Device Contraindication: N/A - Device Ordered VTE Drug Contraindication: Treatment Not Indicated
[2022-11-13 15:54] LABS: COVID-19 Test Negative (Negative); IDNOW Serial# BCCEAD1C
[2022-11-13 16:05] LABS: Glucose, Whole Blood 106 mg/dL (60-115)
[2022-11-13] MEDS: Melatonin 3 MG TABLET 9 MG PO (20:06)
[2022-11-13] MEDS: OLANZapine 7.5 MG TABLET 15 MG PO (20:06)
[2022-11-13 20:09] LABS: Glucose, Whole Blood 109 mg/dL (60-115)
[2022-11-14 03:26] VITALS: BP 121/58; PULSE 64; RESP 18; TEMP 37.4; O2SAT 94
[2022-11-14 07:07] LABS: Glucose, Whole Blood 124 mg/dL (60-115)
[2022-11-14 07:08] VITALS: BP 123/60; PULSE 62; RESP 20; TEMP 36.6; O2SAT 99
--- NOTE | 2022-11-14 09:15 | MHC.CM.PN ---
Patient has been medically cleared for dc to SNF/STR today. Patient will dc to [facility] today at 4PM(after receiving HD here), via [facility]. SNF has arranged HD transport with [facility] for Patient to resume community HD at [facility] beginning 11/16/2022. CM met with Patient at bedside, in HD and addressed IMM with her (original was given to Patient and a copy has been placed on the chart). Per Patient's request, CM spoke with Brother/HCP/Jean @ [phone] and informed him of the dc plan. Patient & Jean care aware of and pleased with this dc plan.
[2022-11-14] MEDS: Midodrine HCl 10 MG TABLET PO (09:35)
--- NOTE | 2022-11-14 11:15 | PM.DS ---
DS: Providers Provider Date of Service: 11/14/22 Date of admission: 11/10/22 21:13 Date of discharge: 11/14/22 Primary care physician: Madyson Delgado MD Consults: 11/10/22 21:15 Consult to Nephrology Routine Consulting Provider: [place] Reason for consultation: esrd on dialysis Consult to Neurology Routine Consulting Provider: [facility] Reason for consultation: acute encephalopathy DS: Diagnosis Discharge Diagnosis (1) Acute and chronic respiratory failure with hypoxia: Status: Acute (2) COPD with hypoxia: Status: Acute (3) Acute metabolic encephalopathy: Status: Acute (4) ESRD needing dialysis: Status: Acute DS: Summary Hospital Course Hospital Course: from admission H+P by hospitalist Bridgette ALONZO, 11/10/22: 62-year-old female with history of bipolar disordered, hypertension, hyperlipidemia, paroxysmal atrial fibrillation not on anticoagulation, colon cancer s/p resection with end-colostomy, COPD, Oliguric ESRD on dialysis presents to the ED for evaluation of altered mentation and lethargy noted by family shortly after eating lunch.? The patient resides in a senior living and was noted to be days and exhausted appearing by senior living staff.? She was recently hospitalized at [facility] for complications of CKD with lethargy and acute metabolic encephalopathy that did resolve following hemodialysis.? Per the patient, she did undergo hemodialysis yesterday.? Staff at senior living report oximetry of 70% rather than baseline 85-90%.? She does not use home O2.? In the ED, patient desaturates to 83% on room air and was placed on 2 L supplemental O2 via nasal cannula.? Vitals otherwise stable.? There is no leukocytosis.? H/H 7.3/24.3% with MCV 106.6.? Creatinine 6.37, BUN 29, electrolytes within normal limits except for CO2 of 31.? Initial glucose 49, improved to 171 with 1 amp D50.? VBG showed pH 7.45, pCO2 55, PO2 38, bicarb 38.? [place] level therapeutic at 0.61.? Negative for COVID-19.? BNP 45, troponin 10.5.? Ammonia level normal at 20.? TSH pending.? D-dimer 238. Head CT negative for any acute intracranial abnormality but does show underlying microangiopathy and generalized cerebral volume loss.? CXR shows low lung volumes and mild left base airspace opacity which may represent mild atelectasis in the setting of low lung volumes.? Chest CT shows cardiomegaly with trace bilateral pleural effusions with a few tiny micro nodules.? Patient reports taking all of her medications as prescribed.? Denies any illicit drug use or alcohol use.? Does not smoke cigarettes.? Out of concern for pulmonary embolism given hypoxia, she was given empiric dose of therapeutic Lovenox 100 mg in the ED. She has no concerns at this time. Ms Hobson is a 62yo F with bipolar disorder, HLD, paroxysmal AF not on AC, colon s/p resection with end-colostomy, COPD, and oliguric ESRD on HD who was admitted for encephalopathy ultimately attributed to hypoxia from underlying COPD. Per the senior living, her baseline SaO2 has been 85-90%. She was started on supplemental O2 to maintain SaO2 of 90-92% and is now dependent on 2L and cannot return to the senior living at this time. Encephalopathy resolved and no infection was suspected. There was no hypercapnia. Initially sedating medications were held, then restarted. She was continued on dialysis [facility]. She was discharged to [facility] for short-term rehabilitation. Time Spent with Patient Time attestation: Total time managing care of this patient today ___35_ minutes. Discharge coordination time: Greater than 30 minutes Quality: Safe Use of Opioids Does Pt have an Active Cancer Diagnosis on the Problem List?: No Quality: Stroke Does the patient have a stroke diagnosis?: No Physical Exam Vital Signs: Vital Signs: Last Vital Signs Temp 97.8 F 11/14/22 07:08 Pulse 62 11/14/22 07:08 Resp 20 11/14/22 07:08 BP 123/60 11/14/22 07:08 Pulse Ox 99 11/14/22 07:08 O2 Del Method Nasal Cannula 11/14/22 07:08 O2 Flow Rate 2 11/14/22 07:08 Oxygen Flow Rate 2 11/10/22 14:55 BMI result Body Mass Index 32.4 Gen: in no acute distress HEENT: sclera anicteric, moist mucus membranes Neck: supple Lungs: clear to auscultation bilaterally Heart: regular rate and rhythm, no murmurs Abd: soft, non-tender, non-distended Ext: no edema Skin: warm/well-perfused Neuro: alert and oriented x3, no focal findings Psych: appropriate affect DS: Data Data Completed and Pending Completed studies during hospitalization [Text1]: Laboratory Results WBC 10.8 X10*3/uL (4.8-10.8) 11/11/22 06:07 RBC 2.26 X10*6/uL (4.20-5.50) L 11/11/22 06:07 Hgb 7.4 g/dl (12.0-16.0) L 11/11/22 06:07 Hct 24.3 % (37.0-47.0) L 11/11/22 06:07 MCV 107.5 fL (80.0-98.0) H 11/11/22 06:07 MCH 32.7 pg (27.0-33.0) 11/11/22 06:07 MCHC 30.5 g/dl (31.0-35.0) L 11/11/22 06:07 RDW 16.1 % (11.0-16.0) H 11/11/22 06:07 Plt Count 242 X10*3/uL (160-400) 11/11/22 06:07 MPV 8.7 fL (9.4-12.3) L 11/11/22 06:07 Immature Gran % (Auto) 1.1 % (0.0-0.4) H 11/11/22 06:07 Neut % (Auto) 76.4 % (45-73) H 11/11/22 06:07 Lymph % (Auto) 12.4 % (20-40) L 11/11/22 06:07 [place] % (Auto) 6.6 % (2-11) 11/11/22 06:07 Eos % (Auto) 3.0 % (0-4) 11/11/22 06:07 Baso % (Auto) 0.5 % (0-2) 11/11/22 06:07 Lymph # (Auto) 1.3 X10*3/uL (1.2-4.9) 11/11/22 06:07 [place] # (Auto) 0.7 X10*3/uL (0.1-1.2) 11/11/22 06:07 Eos # (Auto) 0.3 X10*3/uL (0.0-0.4) 11/11/22 06:07 Baso # (Auto) 0.1 X10*3/uL (0.0-0.2) 11/11/22 06:07 Abs Immat Gran (auto) 0.12 X10*3/uL (0.00-0.03) H 11/11/22 06:07 Absolute Neuts (auto) 8.3 x10*3/uL (2.0-8.3) 11/11/22 06:07 Absolute Nucleated RBC 0.000 X10*3/uL (0.0-0.012) 11/11/22 06:07 Nucleated RBC % (auto) 0.0 /100WBC (0.0-0.2) 11/11/22 06:07 PT 10.5 SEC (10.0-13.1) 11/11/22 20:34 INR 0.9 (0.9-1.1) 11/11/22 20:34 APTT 29.6 SEC (26.0-36.4) 11/10/22 20:39 D-Dimer High Sensitivty 238 NG/ML 11/10/22 16:21 D-Dimer High Sensitivty Cancelled 11/10/22 16:21 VBG pH 7.45 (7.32-7.43) H 11/10/22 16:42 VBG pCO2 55 mmHg 11/10/22 16:42 VBG pO2 38 mmHg 11/10/22 16:42 VBG HCO3 38 mmol/L (22-26) H 11/10/22 16:42 VBG O2 Saturation 57.0 % 11/10/22 16:42 VBG Base Excess 13.2 mmol/L 11/10/22 16:42 Sodium 140 mmol/L (135-145) 11/12/22 06:08 Potassium 5.1 mmol/L (3.3-5.1) 11/12/22 06:08 Chloride 101 mmol/L (96-108) 11/12/22 06:08 Carbon Dioxide 26 mmol/L (22-29) 11/12/22 06:08 Anion Gap 18 (12-20) 11/12/22 06:08 BUN 55 mg/dL (9-16) H 11/12/22 06:08 Creatinine 10.58 mg/dL (0.5-1.4) H* 11/12/22 06:08 Estim Creat Clear Calc 6.7 11/12/22 06:08 Estimated GFR 4 11/12/22 06:08 POC Glucose 124 mg/dL (60-115) H 11/14/22 07:00 Random Glucose 109 mg/dL (60-115) 11/12/22 06:08 Calcium 9.7 mg/dL (8.4-10.2) 11/12/22 06:08 Iron 47 mcg/dL (30-160) 11/11/22 06:07 TIBC 205 mcg/dL (228-428) L 11/11/22 06:07 % Saturation 23 % (15-50) 11/11/22 06:07 Unsat Iron Binding 158 ug/dL 11/11/22 06:07 Total Bilirubin 0.5 mg/dL (0.0-1.0) 11/10/22 16:21 AST 14 U/L (5-31) 11/10/22 16:21 ALT 13 U/L (0-31) 11/10/22 16:21 Alkaline Phosphatase 119 U/L (39-117) H 11/10/22 16:21 Ammonia 20 umol/L (13-55) 11/10/22 16:21 Troponin I High Sens 10.5 ng/L (<3.5-17.0) 11/10/22 16:21 B-Natriuretic Peptide 45 pg/mL (<100) 11/10/22 16:21 Total Protein 6.7 g/dL (6.5-8.0) 11/10/22 16:21 Albumin 4.1 g/dL (3.5-5.0) 11/10/22 16:21 Vitamin B12 654 pg/mL (200-900) 11/10/22 16:21 Folate 8.8 ng/mL (> or = 4.0) 11/10/22 16:21 TSH 2.12 uIU/mL (0.32-4.0) 11/10/22 16:21 [place] 0.78 mmol/L (0.60-1.20) 11/13/22 05:53 COVID-19 ([place]) Negative (Negative) 11/13/22 15:21 COVID-19 Clin Com See Note 11/13/22 15:21 Impressions Chest X-Ray 11/10/22 16:35 IMPRESSION: *Low lung volumes. *Mild left base airspace opacity which may represent mild atelectasis in the setting of low lung volumes. Mild focal consolidation could have a similar appearance. Head CT 11/10/22 18:05 IMPRESSION: 1. No evidence of acute intracranial hemorrhage or edematous territorial infarction. 2. Mild underlying microangiopathy and generalized cerebral volume loss. Chest CT 11/10/22 18:55 IMPRESSION: 1. Cardiomegaly with trace bilateral pleural effusions. 2. A few tiny micronodules are seen. 3. Cholelithiasis without cholecystitis. 4. Bilateral renal cysts, Bosniak class I and II which need no additional follow-up. 5. Bilateral nephrolithiasis and renal scarring. No hydronephrosis. Fleischner guidelines were followed. Discharge Plan Discharge Anticipated Discharge Date/Time: 11/14/22 11:03 Patient Disposition: [facility] Discharge Diagnosis: # acute/?chronic hypoxic resp failure # acute encephalopathy # ESRD on dialysis [facility] Madyson Delgado MD [Primary Care Provider] - 1 Week Discharge Medications: Continued amiodarone 200 mg tablet 1 tab PO DAILY sertraline 100 mg tablet 1 tab PO DAILY midodrine 5 mg tablet 2 tab PO TIDWM Protocol: Hold for SBP< HOLD for SBP < : 120 aspirin 81 mg tablet,delayed release (DR/EC) 1 tab PO DAILY docusate sodium [DOK] 100 mg capsule 2 cap PO BID polyethylene glycol 3350 17 gram/dose powder 17 g PO DAILY PRN (Reason: Constipation) thiamine HCl (vitamin B1) 100 mg tablet 1 tab PO DAILY lithium carbonate 600 mg capsule 1 cap PO TUTHSA@2000 Patient Comments: Every Friday, , and Friday after dialysis Rx Instructions: AFTER DIALYSIS multivitamin with folic acid [Tab-A-Leela] 400 mcg tablet 1 tab PO DAILY sevelamer HCl 800 mg tablet 2 tab PO TIDWM Patient Comments: with meals famotidine 20 mg tablet 1 tab PO DAILY calcitriol 0.25 mcg Capsule 1 mcg PO TUTHSA@0800 Rx Instructions: administer after dialysis on dialysis days chlorpromazine 50 mg Tablet 50 mg PO TUTHSA@0800 lactulose 10 gram/15 mL Solution 20 g PO TID PRN (Reason: Constipation) melatonin 3 mg Tablet 9 mg PO BEDTIME olanzapine 10 mg Tablet 10 mg PO DAILY olanzapine 5 mg Tablet 15 mg PO BEDTIME ferrous sulfate 324 mg (65 mg iron) Tablet,Delayed Release (Dr/Ec) 324 mg PO DAILY gabapentin 100 mg Capsule 100 mg PO DAILY lamotrigine 100 mg Tablet 200 mg PO DAILY magnesium hydroxide [Milk of Magnesia] 400 mg/5 mL Suspension 30 ml PO BEDTIME fluticasone furoate-vilanterol [Breo Ellipta] 200-25 mcg/dose Blister With Device 1 inh INHALATION DAILY albuterol sulfate 90 mcg/actuation Hfa Aerosol Inhaler 1 inh INHALATION Q4H PRN (Reason: WHEEZING/SOB) Procrit 2,000 unit/mL Solution 0 unit TUSA Rx Instructions: UNCLEAR DOSE, GIVEN AT DIALYSIS BIWEEKLY Discharge Orders: Discharge Order (Routine); Ordered 11/14/22 Ordered By: Vikram Rosen Diet: Advance to usual diet Activity on Discharge: As tolerated Stand Alone Forms: Patient Portal Discharge page Care Plan Goals: respiratory health Health Concerns: # acute/?chronic hypoxic resp failure # acute encephalopathy # ESRD on dialysis Plan of Treatment: oxygen 2L via [place], goal SaO2 90-92% dialysis [facility] short-term rehabilitation; anticipated LOS <30d Assessment: See Discharge Summary.
[2022-11-14 12:00] VITALS: BP 110/65; PULSE 67; RESP 20; TEMP 36.4; O2SAT 98
--- NOTE | 2022-11-14 12:09 | PM.PNNEP ---
Subjective Subjective Date of Service: 11/14/22 Interval history: Events noted. All recent data reviewed Physical Exam Vital Signs: Vital Signs: Last Vital Signs Temp 97.8 F 11/14/22 07:08 Pulse 62 11/14/22 07:08 Resp 20 11/14/22 07:08 BP 123/60 11/14/22 07:08 Pulse Ox 99 11/14/22 07:08 O2 Del Method Nasal Cannula 11/14/22 07:08 O2 Flow Rate 2 11/14/22 07:08 Oxygen Flow Rate 2 11/10/22 14:55 BMI result Body Mass Index 32.4 Const: General: comfortable Eyes: EOM: EOMs intact bilaterally Resp: Auscultation: diminished lung sounds Cardio: Rate: regular rate GI: Palpation (GI): Soft to palpation Neuro: General: moves all extremities Objective Data Labs 11/11/22 06:07 11/12/22 06:08 Labs: Laboratory Results - last 24 hr 11/13/22 11/13/22 11/13/22 15:21 15:59 20:03 POC Glucose 106 109 COVID-19 ([place]) Negative COVID-19 Clin Com See Note 11/14/22 07:00 POC Glucose 124 H COVID-19 ([place]) COVID-19 Clin Com Procedures Date of Service Date of Service: 11/14/22 Assessment & Plan Assessment and plan (1) ESRD needing dialysis: Status: Acute Assessment and Plan: Usually gets HD on TTS Had been tolerating HD well Continued volume optimization on HD Midodrine 10 mg PO tid Renal Diet; Phos binders with meals Procrit [id number] Units once a week Progress Note: Quality Stroke Does the patient have a stroke diagnosis?: No
[2022-11-14 12:59] LABS: Glucose, Whole Blood 107 mg/dL (60-115)
[2022-11-14 15:09] VITALS: BP 122/71; PULSE 68; RESP 18; TEMP 37; O2SAT 97
--- NOTE | 2022-11-14 15:28 | PC.NURSE ---
hand-off report given to Elsy YORK at [facility] in [place] where patient is being transferred
== END 2022-11-14 16:26 | disposition skilled nursing facility (03) | DRG 190 ==
LOC: HO.ED 21:10 → HO.EDOVER 21:18 → HO.IMC 21:30
PROVIDERS: Internal Medicine; Nurse Practitioner Acute Care; Student in an Organized Health Care Education/Training Program; Admitting Provider Physician Assistant; Emergency Provider Emergency Medicine; PCP Hospitalist; Visit Provider Family Medicine
DX: J44.9 Chronic obstructive pulmonary disease, unspecified (principal); G93.41 Metabolic encephalopathy; N18.6 End stage renal disease; J96.21 Acute and chronic respiratory failure with hypoxia; I12.0 Hypertensive chronic kidney disease with stage 5 chronic kidney disease or end stage renal disease; F31.9 Bipolar disorder, unspecified; E11.22 Type 2 diabetes mellitus with diabetic chronic kidney disease; E11.649 Type 2 diabetes mellitus with hypoglycemia without coma; Z99.2 Dependence on renal dialysis; D63.1 Anemia in chronic kidney disease; I48.0 Paroxysmal atrial fibrillation; E78.5 Hyperlipidemia, unspecified; Z20.822 Contact with and (suspected) exposure to COVID-19; Z93.3 Colostomy status; Z85.038 Personal history of other malignant neoplasm of large intestine; Z79.51 Long term (current) use of inhaled steroids; Z79.899 Other long term (current) drug therapy
CPT/HCPCS: 36415; 70450; 71045; 71250; 80048; 80053; 80178; 82140; 82607; 82746; 82803; 82947; 83540; 83880; 84443; 84484; 85025; 85027; 85379; 85610; 85730; 87635; 90999; 93005; 97116; 97162; 97530; 99285; J1650